=== PATIENT | male | born 1955 | race Caucasian/White ===

== ENCOUNTER 2024-06-13 20:15 | Emergency (ER) | payer OTHER, MEDICARE, SELFPAY ==
[2024-06-13 20:21] VITALS: PULSE 93; O2SAT 98; BMI 20.9
[2024-06-13 20:33] VITALS: BP 127/77; PULSE 89; RESP 18; TEMP 36.5; O2SAT 95
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
[2024-06-13] MEDS: DIPHTH,PERTUSS(ACELL),TET VAC 0.5 ML VIAL IMi (21:16)
[2024-06-13] MEDS: BACITRACIN OINT 1 GM PACKET TOP (21:17)
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
== END 2024-06-13 23:15 | disposition home or self-care (01) ==
PROVIDERS: Emergency Provider Emergency Medicine; PCP Family Medicine
DX: M51.379 Other intervertebral disc degeneration, lumbosacral region without mention of lumbar back pain or lower extremity pain (principal); R51.9 Headache, unspecified; R42 Dizziness and giddiness; M54.2 Cervicalgia; M25.511 Pain in right shoulder; Z23 Encounter for immunization; V43.62XA Car passenger injured in collision with other type car in traffic accident, initial encounter; Y92.410 Unspecified street and highway as the place of occurrence of the external cause
CPT/HCPCS: 70450; 71250; 72125; 72128; 72131; 74176; 90471; 90715; 99285; A9270

== ENCOUNTER → 2024-06-14 | Outpatient (CLI) | payer OTHER, MEDICARE, SELFPAY ==
--- NOTE | 2024-06-14 14:00 | XR_ITS ---
Examination: CT chest, without intravenous contrast. Sagittal and coronal 2-D reconstructions. Exam date and time: June 14, 2024 1424 hours INDICATIONS: Smoking history years, nicotine dependence, diagnosis lung cancer PET CT scan July 30, 2023 9 mm right upper lobe pulmonary nodule CTDI:vol (mGy) 7.76 DLP: (mGycm) 314 Technique: Multiple 3.0 mm axial sections of the chest to been obtained. Bone and lung density settings are obtained. Sagittal and coronal 2-D reconstructions have been obtained. Low dose protocols were performed. One or more of the following dose reduction techniques were used; automated exposure control, adjustment of the mA and/or KV according to patient size, use of iterative reconstruction technique. Findings: Transverse dimension ascending thoracic aorta 5 cm Pulmonary artery segments are not enlarged No paratracheal tracheobronchial or bronchopulmonary adenopathy COPD with areas of airspace destruction There are 7 subcentimeter bilateral subcentimeter nodules several of which are not clearly depicted on the prior study No pneumonia or pulmonary edema No visualized liver or splenic lesion No gallstones No pancreatic mass No hydronephrosis Partial visualization infrarenal abdominal aortic aneurysm, transverse dimension at least 4.4 cm IMPRESSION: At least 7 subcentimeter pulmonary nodules on the current study, with this study as baseline recommend continued 6 month follow-up CT chest Abdominal aortic and descending thoracic aortic aneurysmal dilatation
== END | disposition home or self-care (01) ==
PROVIDERS: Referring Provider Internal Medicine Hematology & Oncology; Visit Provider Internal Medicine Hematology & Oncology
DX: R91.8 Other nonspecific abnormal finding of lung field (principal); I71.23 Aneurysm of the descending thoracic aorta, without rupture
CPT/HCPCS: 71250

== ENCOUNTER 2024-08-15 11:06 | Outpatient (RCR) | payer OTHER, MEDICARE, SELFPAY ==
--- NOTE | 2024-08-15 12:00 | CTCFLWUP_ITS ---
Patient: YARELY GORMAN : 1955 Page 2 of 2 FOLLOW UP NOTE DATE OF SERVICE: 08/15/2024 NAME: YARELY GORMAN ACCOUNT: [id number] : 1955 AGE: 68 INTERVAL HISTORY: ONCOLOGY HISTORY: DIAGNOSIS: Iron deficiency anemia, unspecified [ICD10] D50.9 Iron deficiency anemia. S/p Feraheme infusion (07/21/2023 - 08/11/2023) Multiple pulmonary nodules Hemor rhagic gastritis. Diverticulosis Mild difficulty swallowing and neck pain. 80-cmni-tgeq smoking history. Patient stopped smoking about 4 years ago. COPD Hypertension Aortic aneurysm being followed by cardiothoracic surgeon in [place]. DATE OF DIAGNOSIS: STAGE/TNM: TREATMENT HISTORY: Care?Plan Start?Date Cycle Day Intent FERAheme?4?doses 07/21/2023 1 28 Palliative HISTORY OF PRESENT ILLNESS: Yarely Gorman is a 68-year-old ENG speaking male with history of hypertension, COPD secondary to cigarette smoking is referred to hematology clinic for anemia. He had EGD and colonoscopy done a bout a year ago by Dr. Dixon. Mr. Gorman complains of having mild difficulty swallowing as well as ne ck pain. 12/05/2021: Hemoglobin 10.7, MCV 84, WBC 6.6, ANC 4.8, platelets 219,000. Creatinine 1.3. 08/20/2022: CT scan of the chest abdomen and pelvis with IV contrast 10/07/2021: Colonoscopy 04/02/2022: EGD? 08/20/2022: Hemoglobin 8.8, MCV 80, WBC 6.5, ANC 4.9, platelets 276,000. Creatinine 1.1. 10/28/2022: Hemoglobin 9.5, MCV 82, WBC 6.9, ANC 5.2, platelets 280,000. 01/29/2023: Hemoglobin 9.8, MCV 87, WBC 6.2, ANC 4.7, platelets 279,000. 05/29/2023: Hemoglobin 9.1, MCV 85, WBC 6.9, ANC 5.3, platelets 541,000, creatinine 1.02 folate 9.6, TSH 1.7, B12 768, ferritin 105 07/02/2023: Hemoglobin 9.8, MCV 86, WBC 7.6, ANC 5.9, platelets 330,000, iron saturation 12%, ferriti n 27, B12 523, folic acid 7.2. 07/21/2023?08/11/2019: Patient received a total of 2040 mg of Feraheme. 07/30/2023: PET/CT scan 09/11/2023: Hemoglobin 10.3, MCV 90, WBC 5.6, ANC 4.0, platelets 245,000. 10/23/2023: Hemoglobin 11.5, MCV 90, WBC 6.5, ANC 4.8, platelets 271,000. 11/24/2023: CT scan of the chest without IV contrast 11/25/2023: Hemoglobin 11.6, MCV 93, WBC 6.5, ANC 4.6, platelets 271,000. OTHER MEDICAL HISTORY/CONDITIONS: chf copd anemia high blood pressure mumps coils/ anyrisum x 3 ulcer surgery 1980s hand surgery FAMILY HISTORY: Patient?denies?family?cancer?history. 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 Tobacco?Pack?per?Day:?0 Tobacco?Use?Years:?50 ETOH?Use:?denies Drug?Note:?denies Social?History?Note:?lives?with??? MEDICATIONS: 1. None Medications Last Reconciled by Claudia Santillan MA on 08/15/2024 ALLERGIES: REVIEW OF SYSTEMS: A complete 14-point review of systems was performed and is negative except as noted in interval histo ry. PHYSICAL EXAMINATION: VITAL SIGNS: PAIN: 2 - Mild pain ECOG Performance Status: 0 - Asymptomatic and fully active GENERAL APPEARANCE: Appears well, in no apparent distress, appropriately interactive. HEENT: Normocephalic, no temporal wasting, normal conjunctiva, no scleral icterus, normal hearing, li ps without lesions, neck normal range of motion. CARDIOVASCULAR: Not assessed. PULMONARY: Normal respiratory effort, no respiratory distress or use of accessory muscles, speaking i n full sentences, no tachypnea. EXTREMITIES: No pedal edema or cyanosis. SKIN: Normal skin appearance. NEUROLOGIC: Alert and oriented x4. PSHYCHIATRIC: Appropriate affect, mood normal, behavior normal, intact thought and speech. LABORATORY DATA: I have personally reviewed and interpreted each of the patient?s relevant lab tests, abnormal finding s are below: Date 07/21/23 ??WHITE?BLOOD?COUNT?(Thou/mm3) 6.2 ??RED?BLOOD?COUNT?(Miln/mm3) 3.36?L ??HEMOGLOBIN?(gm/dl) 9.0?L ??HEMATOCRIT?(%) 27.9?L ??PLATELET?COUNT?(Thou/mm3) 376 ??NEUTROPHILS?%,?AUTO?(%) 73 ??LYMPH?%,?AUTO?(%) 13 ??NEUTROPHILS,?AUTO?(Thou/mm3) 4.5 ASSESSMENT/PLAN: 1. Lung nodule the CT scans from 11/24/2023 were reviewed by radiologist at [facility] in [place]. He did not see any 16mm right upper lobe pulmonary nodule. He has recommended repeating the CT scan of the chest in about 3 [address] scan done on May 2024 did not show 60 mm nodule but shanita wed multiple nodules in both lungs and recommendation is to repeat another CT scan in 6 months Patient quit smoking about 5 years ago Patient have baseline COPD but do not require oxygen 2. Iron deficiency anemia anemia s/p 4 doses of Feraheme Reviewed labs and have anemia as well as iron deficiency Will order Feraheme or 4 doses Patient have a diagnosis of hemorrhagic gastritis Patient just had EGD and colonoscopy in [place] and will send me reports . 3. Diverticulosis 4. Mild difficulty swallowing and neck pain-will wait for EGD report. 5. [id number] smoking history. Patient stopped smoking about 4 years ago. 6. COPD 7. Hypertension follows with PCP 8. Aortic aneurysm on blood thinner. Patient says he stopped taking it as there was some confusion r egarding his procedure. He is back on anticoagulation ORDERS: CT chest for September CBC CMP iron studies after the iron infusion RETURN TO CLINIC: In 2 months with reports from [place] and CT scan results Patient will make earlier appointment if found to have anything concerning on the report of EGD and c olonoscopy by his community pharmacist BILLING AND COMPLIANCE: I reviewed external records from providers outside my specialty as summarized above. I spent a total of 50 minutes on this patient?s care on the day of their visit excluding time spent related to any bi lled procedures. This time includes time spent with the patient as well as time spent documenting in the medical record, reviewing patients records and tests, obtaining history, placing orders, communi cating with other healthcare professionals, counseling the patient, family or caregiver, and/or care coordination for the diagnoses above. Electronically Signed by: George Gonzalez MD T: 11:57 AM CC: PCP: Ekaterina Knott Referring: Ekaterina Knott This document was completed utilizing speech recognition software. Grammatical errors, random word in sertions, pronoun errors, and incomplete sentences are an occasional consequence of this system due t o software limitations, ambient noise, and hardware issues. Any formal questions or concerns about th e content, text or information contained within the body of this dictation should be directly address ed to the provider for clarification.
== END 2024-08-19 23:59 | disposition home or self-care (01) ==
LOC: SCTC 11:06
PROVIDERS: PCP Family Medicine; Referring Provider Family Medicine; Visit Provider Internal Medicine Hematology & Oncology
DX: D50.9 Iron deficiency anemia, unspecified (principal); R91.1 Solitary pulmonary nodule; K57.90 Diverticulosis of intestine, part unspecified, without perforation or abscess without bleeding; R13.10 Dysphagia, unspecified; M54.2 Cervicalgia; J44.9 Chronic obstructive pulmonary disease, unspecified; I10 Essential (primary) hypertension; Z87.891 Personal history of nicotine dependence
CPT/HCPCS: 99212; G0463

== ENCOUNTER 2024-09-08 08:47 | Emergency (ER) | payer OTHER, MEDICARE, SELFPAY ==
[2024-09-08 08:48] VITALS: BMI 21.7
[2024-09-08 09:10] VITALS: BP 130/79; PULSE 83; RESP 18; TEMP 36.9; O2SAT 99
--- NOTE | 2024-09-08 09:29 | PD.EDADULT ---
ED General RME/HPI General Chief complaint: General Adult/Misc Complain Stated complaint: EYE PROBLEMS Time Seen by Provider: 09/08/24 09:27 Source: patient Arrival date/time: 09/08/24 08:47 This is a 68-year-old male who presents to the emergency department with complaints of bloodshot right eye that began this morning. Patient reports he was on his way to [facility] where he would follow-up with his physician for recent stent in the common bile duct. However he noticed painless bloodshot right eye and was instructed to go to the nearest emergency department. Patient denies any injury, or pain. No visual disturbances Mode of arrival: ambulatory Limitations: no limitations Related Data Home Medications ?Medication ?Instructions ?Recorded ?Confirmed spironolactone 25 mg tablet 25 mg PO QDAY 03/29/19 08/20/22 clopidogrel 75 mg tablet 75 mg PO DAILY 12/05/21 08/20/22 pramipexole 0.25 mg tablet 0.25 mg PO HS 12/05/21 08/20/22 carvedilol 12.5 mg tablet 12.5 mg PO BID 08/20/22 08/20/22 ezetimibe 10 mg tablet 10 mg PO QDAY 08/20/22 08/20/22 fluticasone propionate 220 2 puff inhalation BID 08/20/22 08/20/22 mcg/actuation HFA aerosol inhaler (Flovent HFA) lisinopril 40 mg tablet 40 mg PO QDAY 08/20/22 08/20/22 meloxicam 15 mg tablet 15 mg PO QDAY 08/20/22 08/20/22 tiotropium bromide 2.5 1 inh inhalation BID 08/20/22 08/20/22 mcg/actuation mist for inhalation (Spiriva Respimat) Allergies Allergy/AdvReac Type Severity Reaction Status Date / Time No Known Allergies Allergy Verified 09/08/24 08:51 Review of Systems Review of Systems Systems Reviewed: All systems reviewed, normal except as documented Narrative Review of Systems: Gen: No fever, no chills, no weight loss EYES: No discharge, no visual changes, no pain HEENT: No ear pain, no congestion, no sore throat PULM: No shortness of breath, no cough, no congestion CV: No chest pain, no dyspnea on exertion, no palpitations GI: No nausea, no vomiting, no diarrhea, no pain, no constipation : No frequency, no urgency,? no dysuria Musc/skel: No joint pain, no back pain Skin: No rash? Psyc: No hallucinations, no depression Heme/Lymph: No easy bleeding or bruising tendencies Neuro: No weakness, no headache ED Exam General Limitations: Present no limitations General appearance: Present alert and in no apparent distress Head Head exam: Present atraumatic Eye Eye exam: Present PERRL and EOMI Expanded Eye Exam Pupils: Bilateral: regular, round and reactive Sclera/Conjunctival: right: hemorrhage ENT ENT exam: Present normal exam, normal oropharynx and mucous membranes moist Neck Neck exam: Present normal inspection, full ROM and trachea midline Chest Chest inspection: Present normal inspection and symmetric chest wall rise Respiratory Respiratory exam: Present normal lung sounds bilaterally Cardiovascular Cardiovascular exam: Present regular rate, normal rhythm and normal heart sounds Abdominal Exam Abdominal exam: Present soft and normal bowel sounds Extremities Exam Extremities exam: Present normal inspection and full ROM Back Exam Back exam: Present normal inspection and full ROM Neurological Exam Neurological exam: Present alert, oriented X3 and CN II-XII intact Psychiatric Psychiatric exam: Present normal affect and normal mood Skin Skin exam: Present warm, dry, intact and normal color Course Quality Measures none Vital Signs Vital signs: Vital Signs Temperature 98.4 F 09/08/24 09:10 Pulse Rate 83 09/08/24 09:10 Respiratory Rate 18 09/08/24 09:10 Blood Pressure 130/79 09/08/24 09:10 Pulse Oximetry (%) 99 09/08/24 09:10 Oxygen Delivery Method Room Air 09/08/24 09:10 MDM Patient data External records reviewed:: [facility] previous records Clinical information provided by:: patient Social determinants that could affect healthcare access:: none Patient has the following chronic illnesses:: see How is presenting disease/condition affected by chronic disease/condition?: no chronic disease Evaluation data The following diagnostics were reviewed and interpreted by me:: other (specify) Lab and/or radiology exams considered but not ordered:: no Interpretation Summary: no Medications Medications considered but not ordered:: none Medication administrations:: None Consultations Consultation(s) initiated? (list below): No Diagnosis Differential Diagnosis ED Complaint MDM: Subconjunctival hemorrhage, bacterial conjunctivitis, viral conjunctivitis Most likely diagnosis given after review of the tests above:: Subconjunctival hemorrhage Admission Indicated Admission indicated?: not indicated Explain why admission is indicated or not indicated:: no Admission Request Was there a request for admission?: No Disposition Plan Disposition Plan: Discharge Discharge Attestation Discharge Attestation: The patient and all family members were given an opportunity to ask questions and understood the discharge instructions. Discharge instructions specifically effects, indications for sooner follow up or return to the emergency department, and the expected course of current diagnosis. Patient condition: Stable Medical Decision Making MDM Narrative MDM Narrative: Presentation consistent with subconjunctival hemmorhage. Given history and exam I have low suspicion for corneal abrasion or ulcer, globe rupture, uveitis, HSV keratitis, Endopthalmitis, Retinal Detachment, Angle Closure Glaucoma, Foreign Body, hyphema. As this is an isolated episode and patient has no other bleeding sequelae they are stable for discharge without further workup. Discharge home with primary care and ophthalmology follow up in 48 hours if worsening or not resolving. Differential Diagnosis Differential Diagnosis: Subconjunctival hemorrhage, bacterial conjunctivitis, viral conjunctivitis Discharge Plan Plan Patient Disposition: HOME (Self Care) Patient condition on transfer: Stable Prescriptions/Referrals Prescriptions/Med Rec: No Action spironolactone 25 mg Tablet 25 mg PO QDAY clopidogrel 75 mg tablet 75 mg PO DAILY Patient Comments: TAKE 1 TABLET BY MOUTH EVERY DAY FOR 30 DAYS pramipexole 0.25 mg tablet 0.25 mg PO HS Patient Comments: TAKE ONE TABLET BY MOUTH AT BEDTIME FOR 30 DAYS carvedilol 12.5 mg Tablet 12.5 mg PO BID Rx Instructions: must administer with a meal/food meloxicam 15 mg Tablet 15 mg PO QDAY fluticasone propionate [Flovent HFA] 220 mcg/actuation Hfa Aerosol Inhaler 2 puff INHALATION BID lisinopril 40 mg Tablet 40 mg PO QDAY ezetimibe 10 mg Tablet 10 mg PO QDAY Spiriva Respimat 2.5 mcg/actuation Mist 1 inh INHALATION BID Problem List Clinical Impression: TOMAS (subconjunctival hemorrhage) Patient/Caregiver Discharge Instructions Discharge Activity: activity as tolerated Education Materials: ED Subconjunctival Hemorrhage Additional Instructions: Appears that you have a subconjunctival conjunctival hemorrhage no specific treatment is required; the hemorrhage will resolve on its own within 1-2 weeks. Artificial tears may be used for comfort if there is mild irritation. Avoid rubbing the eye to prevent further irritation. Monitor for worsening symptoms, such as pain, vision loss, or recurrent bleeding, and return if these occur. If the patient has a history of hypertension or bleeding disorders, follow up with their primary care provider for further evaluation. Print Language: Irish Stand Alone Forms: Anita Award Info., Patient Portal Info Letter PA/YVONNE Supervising Physician CASSIE/YVONNE Supervising Physician: Dr Marquez
== END 2024-09-08 09:41 | disposition home or self-care (01) ==
PROVIDERS: Emergency Provider Emergency Medicine
DX: H11.31 Conjunctival hemorrhage, right eye (principal)
CPT/HCPCS: 99281

== ENCOUNTER → 2024-09-22 | Outpatient (CLI) | payer OTHER, MEDICARE, SELFPAY ==
--- NOTE | 2024-09-22 13:52 | XR_ITS ---
Examination: PA lateral chest 2 views Technique: AP lateral chest 2 views Exam date and time: September 22, 2024 1406 hrs. Comparison November 19, 2023 Indications: Difficulty breathing 10 years, shortness of breath Findings: Significant hyperexpansion Normal heart size No lobar pneumonia or pulmonary edema Impression: COPD, significant hyperexpansion
== END | disposition home or self-care (01) ==
PROVIDERS: PCP Internal Medicine; Referring Provider Internal Medicine; Visit Provider Internal Medicine
DX: J44.9 Chronic obstructive pulmonary disease, unspecified (principal); J06.9 Acute upper respiratory infection, unspecified; I71.20 Thoracic aortic aneurysm, without rupture, unspecified; R93.2 Abnormal findings on diagnostic imaging of liver and biliary tract
CPT/HCPCS: 71046

== ENCOUNTER → 2024-10-03 | Outpatient (CLI) | payer OTHER, MEDICARE, SELFPAY ==
--- NOTE | 2024-10-03 14:00 | XR_ITS ---
Examination: CT chest with intravenous contrast 2-D sagittal and coronal reconstructions Exam date and time: 08/05/2024 at 1404 hours Comparison June 14, 2024 INDICATIONS: Diagnosis anemia iron deficiency unspecified several weeks, smoking history nicotine dependence, PET/CT scan July 30, 2023 9 mm pulmonary nodule right upper lobe, CT chest July 14, 2024 at least 7 subcentimeter pulmonary nodules CTDI:vol (mGy) 9.31 DLP: (mGycm) 347 Technique: Multiple axial sections of the thorax have been obtained. Sections have been obtained, 3 mm slice thickness. Mediastinal and lung density settings have been obtained. Intravenous contrast administered, 60 cc Isovue-370. 2-D sagittal, coronal images obtained. Low dose protocols were performed. One or more of the following dose reduction techniques were used; automated exposure control, adjustment of the mA and/or KV according to patient size, use of iterative reconstruction technique. Findings: Transverse dimension ascending thoracic aorta 5 cm No pulmonary artery filling defects Significant calcification left main left anterior descending left circumflex right coronary arteries No interval paratracheal tracheobronchial or bronchopulmonary adenopathy COPD with multiple areas of airspace destruction No change in bilateral subcentimeter pulmonary nodules No new pulmonary nodules Pneumobilia Gallbladder wall appears thickened Biliary stent partly visualized Pancreatic calcifications Bilateral subcentimeter renal calculi IMPRESSION: Stable bilateral subcentimeter pulmonary nodules No new pulmonary nodules Recommend hepatobiliary sonography to assess gallbladder wall Bilateral nonobstructing renal calculi
== END | disposition home or self-care (01) ==
PROVIDERS: Referring Provider Internal Medicine Hematology & Oncology; Visit Provider Internal Medicine Hematology & Oncology
DX: R91.8 Other nonspecific abnormal finding of lung field (principal); N20.0 Calculus of kidney
CPT/HCPCS: 71260; A4649; Q9967

== ENCOUNTER 2024-10-24 13:42 | Outpatient (RCR) | payer OTHER, MEDICARE, SELFPAY ==
--- NOTE | 2024-10-25 10:22 | CTCFLWUP_ITS ---
Patient: YARELY GORMAN : 1955 Page 4 of 6 FOLLOW UP NOTE DATE OF SERVICE: 10/24/2024 NAME: YARELY GORMAN ACCOUNT: [id number] : 1955 AGE: 69 INTERVAL HISTORY: Patient doing well and have no new complaints . Patient have active life. Patient says he did not receive iron even though it was ordered. ONCOLOGY HISTORY:?[facility] Hx? DIAGNOSIS: Iron deficiency anemia, unspecified [ICD10] D50.9 Iron deficiency anemia. S/p Feraheme infusion (07/21/2023 - 08/11/2023) Multiple pulmonary nodules Hemorrhagic gastritis. Diverticulosis Mild difficulty swallowing and neck pain. 95-jidx-ungs smoking history. Patient stopped smoking about 4 years ago. COPD Hypertension Aortic aneurysm being followed by cardiothoracic surgeon in [place]. DATE OF DIAGNOSIS: 12/05/2021 STAGE/TNM: Not applicable TREATMENT HISTORY: Care?Plan Start?Date Cycle Day Intent FERAheme?4?doses 07/21/2023 1 28 Palliative HISTORY OF PRESENT ILLNESS: Yarely Gorman is a 69-year-old ENG speaking male with history of hypertension, COPD secondary to cigarette smoking is referred to hematology clinic for anemia. He had EGD and colonoscopy done about a year ago by Dr. Dixon. Mr. Gorman complains of having mild difficulty swallowing as well as neck pain. 12/05/2021: Hemoglobin 10.7, MCV 84, WBC 6.6, ANC 4.8, platelets 219,000. Creatinine 1.3. 08/20/2022: CT scan of the chest abdomen and pelvis with IV contrast 10/07/2021: Colonoscopy 04/02/2022: EGD? 08/20/2022: Hemoglobin 8.8, MCV 80, WBC 6.5, ANC 4.9, platelets 276,000. Creatinine 1.1. 10/28/2022: Hemoglobin 9.5, MCV 82, WBC 6.9, ANC 5.2, platelets 280,000. 01/29/2023: Hemoglobin 9.8, MCV 87, WBC 6.2, ANC 4.7, platelets 279,000. 05/29/2023: Hemoglobin 9.1, MCV 85, WBC 6.9, ANC 5.3, platelets 541,000, creatinine 1.02 folate 9.6, TSH 1.7, B12 768, ferritin 105 07/02/2023: Hemoglobin 9.8, MCV 86, WBC 7.6, ANC 5.9, platelets 330,000, iron saturation 12%, ferritin 27, B12 523, folic acid 7.2. 07/21/2023?08/11/2019: Patient received a total of 2040 mg of Feraheme. 07/30/2023: PET/CT scan 09/11/2023: Hemoglobin 10.3, MCV 90, WBC 5.6, ANC 4.0, platelets 245,000. 10/23/2023: Hemoglobin 11.5, MCV 90, WBC 6.5, ANC 4.8, platelets 271,000. 11/24/2023: CT scan of the chest without IV contrast 11/25/2023: Hemoglobin 11.6, MCV 93, WBC 6.5, ANC 4.6, platelets 271,000. OTHER MEDICAL HISTORY/CONDITIONS: chf copd anemia high blood pressure mumps coils/ anyrisum x 3 ulcer surgery 1980s hand surgery FAMILY HISTORY: Patient?denies?family?cancer?history. 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 Tobacco?Pack?per?Day:?0 Tobacco?Use?Years:?50 ETOH?Use:?denies Drug?Note:?denies Social?History?Note:?lives?with??? MEDICATIONS: 1. None?[place] Meds? Medications Last Reconciled by Claudia Santillan MA on 10/24/2024 ALLERGIES: REVIEW OF SYSTEMS: A complete 14-point review of systems was performed and is negative except as noted in interval history. PHYSICAL EXAMINATION:?CloneBlock PE? VITAL SIGNS: Temperature?98.2, B/P?114/70, Oxygen?Saturation?95% Weight?137.4?lbs PAIN: 0 - No pain ECOG Performance Status: 0 - Asymptomatic and fully active GENERAL APPEARANCE: Appears well, in no apparent distress, appropriately interactive. HEENT: Normocephalic, no temporal wasting, normal conjunctiva, no scleral icterus, normal hearing, lips without lesions, neck normal range of motion. CARDIOVASCULAR: Not assessed. PULMONARY: Normal respiratory effort, no respiratory distress or use of accessory muscles, speaking in full sentences, no tachypnea. EXTREMITIES: No pedal edema or cyanosis. SKIN: Normal skin appearance. NEUROLOGIC: Alert and oriented x4. PSHYCHIATRIC: Appropriate affect, mood normal, behavior normal, intact thought and speech. LABORATORY DATA: I have personally reviewed and interpreted each of the patient?s relevant lab tests, abnormal findings are below: Date 07/21/23 ??WHITE?BLOOD?COUNT?(Thou/mm3) 6.2 ??RED?BLOOD?COUNT?(Miln/mm3) 3.36?L ??HEMOGLOBIN?(gm/dl) 9.0?L ??HEMATOCRIT?(%) 27.9?L ??PLATELET?COUNT?(Thou/mm3) 376 ??NEUTROPHILS?%,?AUTO?(%) 73 ??LYMPH?%,?AUTO?(%) 13 ??NEUTROPHILS,?AUTO?(Thou/mm3) 4.5 ??GLUCOSE,RANDOM?(mg/dL) 88 ??BLOOD?UREA?NITROGEN?(mg/dL) 27?H ??CREATININE?(mg/dL) 1.20 ??SODIUM?(mmol/L) 136 ??POTASSIUM?(mmol/L) 4.1 ??CHLORIDE?(mmol/L) 107 ??CrCl?(CandG)?(ml/min) 50.02 ??AST/SGOT?(Unit/L) <?8 ??ALT/SGPT?(Unit/L) 13 ??ALKALINE?PHOSPHATASE?(Unit/L) 88 ??BILIRUBIN,?TOTAL?(mg/dL) 0.2?L ??PROTEIN?TOTAL?(gm/dl) 6.5 ??ALBUMIN,?SERUM?(gm/dl) 4.1 ??GLOBULIN?(gm/dl) 2.4 ??ALBUMIN/GLOBULIN?RATIO 1.7 ??CALCIUM,?SERUM?(mg/dL) 9.1 ??CALCIUM?SERUM?(CORRECTED)?(mg/dL) 9.1 ??TOTAL?IRON?BINDING?CAP?(S*)?(mcg/dL) 329 ??UNBOUND?IBC?(mcg/dL) 305?H ASSESSMENT/PLAN:?Jayjay Gonzalez Assessment/Plan? 1. Lung nodule the CT scans from 11/24/2023 were reviewed by radiologist at [facility] in [place]. He did not see any 16mm right upper lobe pulmonary nodule. He has recommended repeating the CT scan of the chest in about 3 [address] scan done on May 2024 did not show 60 mm nodule but showed multiple nodules in both lungs and recommendation is to repeat another CT scan in 6 months Patient quit smoking about 5 years ago Patient have baseline COPD but do not require oxygen CT scan on 10/03/2024 shows stable bilateral subcentimeter Colten nodules and no new pulmonary nodules 2. Iron deficiency anemia anemia s/p 4 doses of Feraheme Reviewed labs and have anemia as well as iron deficiency Will order Feraheme or 4 doses Patient have a diagnosis of hemorrhagic gastritis Patient just had EGD and colonoscopy in [place] and will send me reports-report still not available but per patient everything was normal Recent iron studies are stable Will check for other causes of anemia . 3. Diverticulosis 4. Mild difficulty swallowing and neck pain-will wait for EGD report. 5. 26-yset-yoxe smoking history. Patient stopped smoking about 4 years ago. 6. COPD 7. Hypertension follows with PCP 8. Aortic aneurysm on blood thinner. Patient says he stopped taking it as there was some confusion regarding his procedure. He is back on anticoagulation ORDERS: Order # Description [id number] Ferritin + Vitamin B-12 + Folic Acid; Serum + Iron Panel + Lactate Dehydrogenase (LDH) + Assay Of Haptoglobin Quant [id number] MD Follow Up 2 Months [id number] CBC with Auto Diff + Comprehensive Metabolic Panel - 12 [id number] Serum Immunofixation Electrophoresis + Serum Protein Electrophoresis + Quant Immunoglobulins + Free kappa and lambda light chains plus ratio, quantitative [id number] Testosterone; Total RETURN TO CLINIC: To go over the labsI will see him back in the clinic in 2 months. BILLING AND COMPLIANCE: I reviewed external records from providers outside my specialty as summarized above. I spent a total of 50 minutes on this patient?s care on the day of their visit excluding time spent related to any billed procedures. This time includes time spent with the patient as well as time spent documenting in the medical record, reviewing patients records and tests, obtaining history, placing orders, communicating with other healthcare professionals, counseling the patient, family or caregiver, and/or care coordination for the diagnoses above. Electronically Signed by: George Gonzalez MD T: 10:20 AM CC: Ian?Nadeen?Magali,? PCP: Ian Olmedo Referring: Ian Olmedo This document was completed utilizing speech recognition software. Grammatical errors, random word insertions, pronoun errors, and incomplete sentences are an occasional consequence of this system due to software limitations, ambient noise, and hardware issues. Any formal questions or concerns about the content, text or information contained within the body of this dictation should be directly addressed to the provider for clarification.
== END 2024-11-16 23:59 | disposition home or self-care (01) ==
LOC: SCTC 13:42
PROVIDERS: PCP Internal Medicine; Referring Provider Internal Medicine; Visit Provider Internal Medicine Hematology & Oncology
DX: D50.9 Iron deficiency anemia, unspecified (principal); R91.8 Other nonspecific abnormal finding of lung field; Z87.891 Personal history of nicotine dependence; J44.9 Chronic obstructive pulmonary disease, unspecified; K57.90 Diverticulosis of intestine, part unspecified, without perforation or abscess without bleeding; M54.2 Cervicalgia; R13.10 Dysphagia, unspecified; K29.71 Gastritis, unspecified, with bleeding; I71.9 Aortic aneurysm of unspecified site, without rupture; Z79.01 Long term (current) use of anticoagulants
CPT/HCPCS: 99212; G0463

== ENCOUNTER 2024-10-30 06:20 | Emergency (ER) | payer OTHER, MEDICARE, SELFPAY ==
[2024-10-30 06:25] VITALS: BP 145/81; PULSE 83; RESP 18; TEMP 36.4; O2SAT 95
[2024-10-30 06:26] VITALS: BMI 21.7
[2024-10-30 06:27] VITALS: PULSE 91; RESP 20; O2SAT 96
--- NOTE | 2024-10-30 06:45 | EKG_ITS ---
[facility] Test Date: 2024-10-30 Pat Name: YARELY GORMAN Department: Room: - Gender: Male [employer]ist: : 1955 Requested By: Letha Granados Order Number: [id number] Reading MD: Letha Granados Measurements Intervals [place] Rate: 79 P: 59 DC: 159 QRS: 27 QRSD: 100 T: 60 QT: 372 QTc: 428 Interpretive Statements SINUS RHYTHM WITH OCCASIONAL VENTRICULAR PREMATURE COMPLEXES SEPTAL MYOCARDIAL INFARCTION , OF INDETERMINATE AGE [40+ ms Q WAVE IN V1/V2] Compared to ECG 11/19/2023 21:01:52 Ventricular premature complex(es) now present Myocardial infarct finding now present /store/S0/[id number].pdf
[2024-10-30] MEDS: SODIUM CHLORIDE 0.9% 1000 ML 1,000 ML 999 ML IV (06:53)
--- NOTE | 2024-10-30 06:54 | EDNOTE_ITS ---
Nausea/Vomit./Diarrhea-RME/HPI General Chief complaint: Nausea/Vomiting/Diarrhea Stated complaint: NAUSEA Time Seen by Provider: 10/30/24 06:38 Arrival date/time: 10/30/24 06:20 RME / HPI RME / HPI Narrative: DR. PAULSON MAIN ED EVALUATION: 69 year old male presents to the Emergency Department [facility] with complaints of nausea, dry heaving, not really vomiting, and light-headedness. Onset of symptoms 530 AM today. Per patient he is unsure if it had to do with his gallbladder stent problem or change in diet; he states his wanted him to eat better and got some mediterranean meat that might of been bad. Denies any di arrhea or constipation. Denies any urinary symptoms. No chest pain. PMHx: CHF, COPD secondary to cigarette smoking quit 5 years ago, multiple pulmonary nodules, iron deficiency anemia, gastritis, hypertension, and an aortic aneurysm being followed by cardiothoracic surgeon in [place]. Social Hx: No tobacco, alcohol, or substance use. Related Data Home Medications ?Medication ?Instructions ?Recorded ?Confirmed spironolactone 25 mg tablet 25 mg PO QDAY 03/29/1908/11 clopidogrel 75 mg tablet 75 mg PO DAILY 12/05/2108/11 pramipexole 0.25 mg tablet 0.25 mg PO HS 12/05/2108/11 carvedilol 12.5 mg tablet 12.5 mg PO BID 08/20/2208/11 ezetimibe 10 mg tablet 10 mg PO QDAY 08/20/2208/20 fluticasone propionate 220 2 puff inhalation BID 08/2008/20/22 mcg/actuation HFA aerosol inhaler (Flovent HFA) lisinopril 40 mg tablet 40 mg PO QDAY 08/20/2208/20 meloxicam 15 mg tablet 15 mg PO QDAY 08/20/2208/20 tiotropium bromide 2.5 1 inh inhalation BID 3 08/20/22 mcg/actuation mist for inhalation (Spiriva Respimat) Allergies Allergy/AdvReac Type Severity Reaction Status Date / Time No Known Allergies Allergy Verified 09/08/24 08:51 Review of Systems Review of Systems Systems Reviewed: All systems reviewed, normal except as documented Past Medical History Past Medical History NEUROLOGIC: Positive Neurological Disorders CARDIAC: Positive Cardiac Disorders, Deep Vein Thrombosis and Hypertension RESPIRATORY: Positive Pneumonia GASTROINTESTINAL: Positive Gastrointestinal Disorders MUSCULOSKELETAL: Positive Musculoskeletal Disorders, Arthritis and Fractures (WRIST) HEMATOLOGIC: Positive Blood Disorders and Anemia (ON TREATMENTS) OTHER HISTORY: Positive Hospitalization, Chicken Pox, Measles and Mumps Family History FAMILY HISTORY: Positive Family Respiratory Disorders Surgical History SURGICAL: Positive Vascular Surgery, Angiogram, Tonsillectomy, Abdominal Surgery and Amputation Social History SMOKING STATUS: Never smoker SECOND HAND EXPOSURE: Yes SUBSTANCE USE: does not use ALCOHOL: Never ED Exam Narrative Physical exam: GENERAL APPEARANCE: alert and oriented x 4, well-developed, well-nourished, no acute distress VITALS: All vitals were reviewed and the pulse ox is 95% on room air, which is normal according to my interpretation. HEENT: Normocephalic, atraumatic; pupils equal, round, reactive to light; EOMI; mucous membranes pink, moist; oropharynx clear NECK: Supple LUNGS: CTABL; no wheezes, no rales, no rhonchi HEART: Regular rate, regular rhythm; normal S1, S2; no murmurs ABDOMEN: mildly distended; normal BS; soft, no tenderness, no guarding, no rebound; no masses, no organomegaly, no hernia BACK: no CVA tenderness EXTREMITIES: atraumatic; no edema NEUROLOGIC: awake; alert and oriented x4; cranial nerves II-XII grossly intact; no focal sensory or motor deficits PSYCHIATRIC: appropriate mood and affect SKIN: warm, dry, normal color; no rashes Course Quality Measures none Orders Category Date Time Status CT Screening NOW Care 10/30/24 08:50 Completed Security Incident Response Specialist NOW Care 10/30/24 06:45 Completed EKG (ED ONLY) *Do not use* NOW Care 10/30/24 06:[address] angio chest abdomen pelvis Stat Exams 10/30/24 08:[address] head/brain wo con Stat Exams 10/30/24 08:50 Completed EKG (ED Only) Stat Exams 10/30/24 06:45 Draft B-Type Natriuretic Peptide Stat Lab 10/30/24 07:44 Completed CBC Stat Lab 10/30/24 07:44 Completed Comprehensive Metabolic Panel Stat Lab 10/30/24 07:44 Completed Lipase Stat Lab 10/30/24 07:44 Completed Magnesium Stat Lab 10/30/24 07:44 Completed Partial Thromboplastin Time Stat Lab 10/30/24 07:44 Completed Prothrombin Time with INR Stat Lab 10/30/24 07:44 Completed Troponin I Stat Lab 10/30/24 07:44 Completed Ondansetron Inj [Zofran Inj] Med 10/30/24 06:32 Discontinued 4 mg IV X1 ONE Sodium Chloride 0.9% 1000 ml [Ns] 1,000 ml Med 10/30/24 06:45 Discontinued IV 999 mls/hr Vital Signs Vital signs: Vital Signs Temperature 97.5 F 10/30/24 06:25 Pulse Rate 83 10/30/24 06:25 Respiratory Rate 18 10/30/24 06:25 Blood Pressure 145/81 H 10/30/24 06:25 Pulse Oximetry (%) 95 10/30/24 06:25 Oxygen Delivery Method Room Air 10/30/24 06:25 Nausea/Vomiting/Diarrhea MDM Narrative MDM Narrative:: Aarti Lemos am scribing for and in the presence of Dr. Paulson. Patient data External records reviewed:: [facility] previous records (Reviewed oncology note by Dr. Gonzalez, dated 08/15/24.) Clinical information provided by:: patient Social determinants that could affect healthcare access:: other (specify) (Former smoker, quit 5 years ago.) Patient has the following chronic illnesses:: CHF, COPD secondary to cigarette smoking quit 5 years ago, multiple pulmonary nodules, iron deficiency anemia, gastritis, hypertension, and an aortic aneurysm being followed by cardiothoracic surgeon in [place]. How is presenting disease/condition affected by chronic disease/condition?: exacerbated by Evaluation data The following diagnostics were reviewed and interpreted by me:: lab results and EKG tracing(s) Lab and/or radiology exams considered but not ordered:: none Interpretation Summary: EKG#1: EKG at 0705 hours. Interpreted by me: sinus rhythm with occasional PVCs, rate 79, Q wave V1-V3 Medications / Prescriptions Medications / Prescriptions considered but not ordered:: none Medication administrations:: Medication Administration History Discontinued Medications Sodium Chloride (Ns) 1,000 mls @ 999 mls/hr IV .Q1H1M ONE Stop: 10/30/24 07:45 Last Infusion: 10/30/24 07:55 Dose: Infused Documented By: Admin: 10/30/24 06:53 Dose: 999 mls/hr Documented By: AKIRA Ondansetron HCl (Ondansetron Inj 2 Mg/Ml Inj 2 Ml) 4 mg IV X1 ONE; Protocol Stop: 10/30/24 06:33 Last Admin: 10/30/24 10:11 Dose: Not Given Documented By: CIRA Non-Admin Reason: Other, see note Comments: PATIENT WITH NAUSEA, HELD MEDICATION see above Consultations Consultation(s) initiated? (list below): No Diagnosis Nausea Differential Diagnosis: traveler's diarrhea, food poisoning, gastroenteritis and dehydration Most likely diagnosis given after review of the tests above:: Nausea Dizziness Admission Indicated Admission indicated?: not indicated Admission Request Was there a request for admission?: No Disposition Plan Disposition Plan: Discharge Discharge Attestation Discharge Attestation: The patient and all family members were given an opportunity to ask questions and understood the discharge instructions. Discharge instructions specifically effects, indications for sooner follow up or return to the emergency department, and the expected course of current diagnosis. Patient condition: Stable Discharge Plan Plan Patient Disposition: HOME (Self Care) Prescriptions/Referrals Prescriptions/Med Rec: No Action spironolactone 25 mg Tablet 25 mg PO QDAY clopidogrel 75 mg tablet 75 mg PO DAILY Patient Comments: TAKE 1 TABLET BY MOUTH EVERY DAY FOR 30 DAYS pramipexole 0.25 mg tablet 0.25 mg PO HS Patient Comments: TAKE ONE TABLET BY MOUTH AT BEDTIME FOR 30 DAYS carvedilol 12.5 mg Tablet 12.5 mg PO BID Rx Instructions: must administer with a meal/food meloxicam 15 mg Tablet 15 mg PO QDAY fluticasone propionate [Flovent HFA] 220 mcg/actuation Hfa Aerosol Inhaler 2 puff INHALATION BID lisinopril 40 mg Tablet 40 mg PO QDAY ezetimibe 10 mg Tablet 10 mg PO QDAY Spiriva Respimat 2.5 mcg/actuation Mist 1 inh INHALATION BID Referrals: Ian Senior [Primary Care Provider] - In 1 week Problem List Clinical Impression: Nausea, Dizziness Patient/Caregiver Discharge Instructions Education Materials: ED Dizziness, Uncertain Cause Print Language: Hong Konger Stand Alone Forms: Anita Award Info., Patient Portal Info Letter
[2024-10-30 07:29] VITALS: BP 111/76; PULSE 86; RESP 20; O2SAT 96
[2024-10-30 07:59] LABS: Basophils % (Auto) 1 % (0-2.5); Eosinophils # (Auto) 0.3 Thou/mm3 (0.0-0.5); Eosinophils % (Auto) 4 % (0-10); Hematocrit 31.3 % (41.0-53.0); Hemoglobin 10.8 g/dL (13.5-16.0); Immature Granulocytes % (Auto) 0 % (0-0); Immature Granulocytes Auto 0.02 Thou/mm3 (0.00-0.00); Lymphocytes # (Auto) 0.9 Thou/mm3 (1.0-4.8); Lymphocytes % (Auto) 13 % (10-50); Mean Corpuscular HGB Conc 34.5 g/dl (31.0-37.0); Mean Corpuscular Hemoglobin 30.3 pg (25.0-35.0); Mean Corpuscular Volume 88 fL (80-100); Monocytes # (Auto) 0.5 Thou/mm3 (0.0-0.8); Monocytes % (Auto) 8 % (0-12); Neutrophils # (Auto) 5.2 Thou/mm3 (1.8-7.7); Neutrophils % (Auto) 75 % (37-80); Nucleated Red Blood Cell % 0 /100 WBC (0); Platelet Count 235 Thou/mm3 (140-440); Red Blood Count 3.57 Miln/mm3 (4.50-5.90); White Blood Count 6.9 Thou/mm3 (3.8-10.6)
--- NOTE | 2024-10-30 08:34 | PC.NURSE ---
PATIENT DENIES COMPLAINT OF NAUSEA AT THIS TIME. WILL CONTINUE TO MONITOR PATIENT
[2024-10-30 08:36] LABS: B-Type Natriuretic Peptide 131 pg/mL (0-100)
[2024-10-30 08:37] LABS: Partial Thromboplastin Time 29.2 Seconds (22.0-36.0); Prothrombin Time 11.2 Seconds (9.0-12.2)
[2024-10-30 08:38] LABS: Alanine Aminotransferase 15 U/L (10-49); Albumin, Serum 3.6 gm/dL (3.4-4.8); Albumin/Globulin Ratio 1.6 (1.2-2.2); Alkaline Phosphatase 103 U/L (46-116); Anion Gap 4 (7-16); Aspartate Amino Transferase 16 U/L (0-34); BUN/Creatinine Ratio 19 Ratio (12-20); Bilirubin,Total 0.4 mg/dL (0.3-1.2); Blood Urea Nitrogen 21 mg/dL (9-23); Calcium 8.3 mg/dL (8.3-10.6); Calcium (Corrected) 8.6 mg/dL (8.5-10.1); Carbon Dioxide 27.4 mMol/L (20.0-31.0); Chloride 102 mMol/L (98-107); Creatinine (Component) 1.1 mg/dL (0.6-1.3); Estimated Creatinine Clearance 53.3 mL/min (>60); Globulin 2.2 gm/dL (2.3-3.5); Glucose 92 mg/dL (74-106); Lipase 38 U/L (12-53); Magnesium 1.7 mg/dL (1.6-2.6); Osmolality,Calculated 269 (275-295); Potassium 4.8 mMol/L (3.4-5.1); Sodium 133 mMol/L (136-145); Total Protein 5.8 gm/dL (5.7-8.2); Troponin I < 0.020 ng/mL (0.0-0.045); eGFR > 60 See Note
--- NOTE | 2024-10-30 08:50 | XR_ITS ---
Examination: CTA chest, with intravenous contrast. CTA abdomen, with intravenous contrast. CTA pelvis, with intravenous contrast. 2-D sagittal and coronal reconstructions. 3-D reconstructions. Date and time of exam: 09/01/2024 0905 hrs. Comparison October 03, 2024 Indications: Vomiting chest abdominal pain this morning, history recurrent abdominal aortic aneurysm 2 years ago CTDI vol (mgy) 9.29 DLP (MGycm) : 61 Technique: Multiple CTA images, 2.0 mm slice thickness, obtained chest, abdomen, pelvis, with the high-resolution 64 slice scanner. 100 cc Isovue-370 is administered intravenously. Sagittal and coronal 2-D reconstructions are obtained. 3-D reconstructions, angiographic images are obtained. 3-D postprocessing, including vascular maximum intensity projections. Low dose protocols were performed. One or more of the following dose reduction techniques were used; automated exposure control, adjustment of the mA and/or KV according to patient size, use of iterative reconstruction technique. Findings: Transverse dimension ascending thoracic aorta 4.7 cm Pulmonary artery opacification is poor no gross pulmonary artery filling defects No mediastinal lymphadenopathy No pneumonia or pulmonary edema or pleural disease Significant coronary artery calcification Fatty infiltration throughout the liver No intrahepatic biliary tract dilatation Contracted gallbladder Biliary stent satisfactory position Spleen not enlarged. No pancreatic mass. No hydronephrosis. Infrarenal abdominal aortic aneurysm transverse dimension 4.7 cm AP dimension 3.7 cm with prominent chronic mural thrombus Normal appendix Numerous surgical clips and opaque material in the right pelvis No bowel obstruction Urinary bladder intact No significant prostatomegaly Severe osteopenia Impression: Transverse dimension ascending thoracic aorta 4.7 cm no thoracic aortic dissection Pulmonary artery opacification is poor. No pneumonia, pulmonary edema or pleural disease. Biliary stent satisfactory position. Infrarenal abdominal aortic aneurysm transverse dimension 4.7 cm AP dimension 3.7 cm with chronic mural thrombus Normal appendix No bowel obstruction
--- NOTE | 2024-10-30 08:50 | XR_ITS ---
Examination: CT brain head without contrast. 2-D sagittal coronal reconstructions Date and time of exam:October 30, 2024 0903 hrs. Indications: Onset dizziness beginning this morning CTDI: vol (mGy):51.8 DLP: (mGycm):1096 Technique: Multiple CT axial sections of the brain have been obtained, 5 mm slice thickness. Contrast has not been administered. 2-D sagittal, coronal reconstructions have been obtained Low dose protocols were performed. One or more of the following dose reduction techniques were used; automated exposure control, adjustment of the mA and/or KV according to patient size, use of iterative reconstruction technique. Findings: No significant ventricular enlargement. Intra-axial or extra-axial hemorrhage density is not seen. No mass effect or midline shift Basal cisterns are not remarkable. Fourth ventricle is midline. Cranial vault intact. Mild chronic ethmoid sinusitis Impression: Negative for acute hemorrhage, mass effect or midline shift Advise clinical correlation and follow-up accordingly
[2024-10-30 10:00] VITALS: BP 124/67; PULSE 91; RESP 15; TEMP 37.1; O2SAT 96
[2024-10-30 10:37] VITALS: BP 138/84; PULSE 89; RESP 12; TEMP 37.1; O2SAT 97
== END 2024-10-30 10:54 | disposition home or self-care (01) ==
PROVIDERS: Emergency Provider Emergency Medicine; PCP Internal Medicine
DX: R11.2 Nausea with vomiting, unspecified (principal); R42 Dizziness and giddiness; J44.9 Chronic obstructive pulmonary disease, unspecified; I11.0 Hypertensive heart disease with heart failure; I50.9 Heart failure, unspecified; D50.9 Iron deficiency anemia, unspecified; Z87.19 Personal history of other diseases of the digestive system; Z86.718 Personal history of other venous thrombosis and embolism; Z86.79 Personal history of other diseases of the circulatory system; Z87.891 Personal history of nicotine dependence
CPT/HCPCS: 36415; 70450; 71275; 74174; 80053; 83690; 83735; 83880; 84484; 85025; 85610; 85730; 93005; 96360; 99285; A4649; J7030; Q9967

== ENCOUNTER 2024-11-14 23:28 | Emergency (ER) | payer OTHER, MEDICARE, SELFPAY ==
[2024-11-14 23:37] VITALS: PULSE 97; O2SAT 98
[2024-11-14 23:40] VITALS: BMI 22.4
[2024-11-14 23:47] VITALS: BP 107/70; PULSE 97; RESP 20; TEMP 37; O2SAT 96
--- NOTE | 2024-11-14 23:55 | XR_ITS ---
Examination: Knee, right , 3 views Technique: Knee AP, lateral, oblique 3 views Date and time of exam: November 14, 2024 11:59 PM Indications: Knee pain months FINDINGS: Prominent osteopenia Mild to moderate tricompartment osteoarthritis. No fracture IMPRESSION: Mild to moderate tricompartment osteoarthritis
--- NOTE | 2024-11-14 23:56 | EDNOTE_ITS ---
Lower Extremity Injury RME/HPI General Chief Complaint: Extremity Injury, Lower Stated Complaint: R KNEE AND INTERNAL THIGH PAIN Time Seen by Provider: 11/14/24 23:50 Source: patient, EMS, RN notes reviewed and old records reviewed Arrival date/time: 11/14/24 23:28 Mode of arrival: wheelchair Limitations: no limitations RME / HPI RME / HPI Narrative: 69yom presents to ED via EMS for right knee pain for 15 years, worsened today. No recent injury or fall reported. Patient denies joint swelling or numbness/tingling. Tylenol taken at home with little relief. Related Data Home Medications ?Medication ?Instructions ?Recorded ?Confirmed spironolactone 25 mg tablet 25 mg PO QDAY 03/29/1908/11 clopidogrel 75 mg tablet 75 mg PO DAILY 12/05/2108/11 pramipexole 0.25 mg tablet 0.25 mg PO HS 12/05/2108/11 carvedilol 12.5 mg tablet 12.5 mg PO BID 08/20/2208/11 ezetimibe 10 mg tablet 10 mg PO QDAY 08/20/2208/20 fluticasone propionate 220 2 puff inhalation BID 08/2008/20/22 mcg/actuation HFA aerosol inhaler (Flovent HFA) lisinopril 40 mg tablet 40 mg PO QDAY 08/20/2208/20 meloxicam 15 mg tablet 15 mg PO QDAY 08/20/2208/20 tiotropium bromide 2.5 1 inh inhalation BID 3 08/20/22 mcg/actuation mist for inhalation (Spiriva Respimat) Previous Rx's ?Medication ?Instructions ?Recorded acetaminophen 650 mg 650 mg PO Q8H PRN pain #30 t abs 11/15/24 tablet,extended release (Tylenol 8 Hour) lidocaine 5 % topical patch 1 patch topical QDAY PRN p ain #15 11/15/24 ea Allergies Allergy/AdvReac Type Severity Reaction Status Date / Time No Known Allergies Allergy Verified 11/14/24 23:37 Review of Systems Review of Systems Systems Reviewed: All systems reviewed, normal except as documented Musculoskeletal Musculoskeletal: Reports arthralgias, Denies deformity, Denies joint swelling, Denies numbness and Denies tingling Neurologic Neurologic: Denies numbness and Denies tingling Past Medical History Past Medical History NEUROLOGIC: Positive Neurological Disorders CARDIAC: Positive Cardiac Disorders, Deep Vein Thrombosis and Hypertension RESPIRATORY: Positive Pneumonia GASTROINTESTINAL: Positive Gastrointestinal Disorders MUSCULOSKELETAL: Positive Musculoskeletal Disorders, Arthritis and Fractures (WRIST) HEMATOLOGIC: Positive Blood Disorders and Anemia (ON TREATMENTS) OTHER HISTORY: Positive Hospitalization, Chicken Pox, Measles and Mumps Family History FAMILY HISTORY: Positive Family Respiratory Disorders Surgical History SURGICAL: Positive Vascular Surgery, Angiogram, Tonsillectomy, Abdominal Surgery and Amputation Social History SMOKING STATUS: Never smoker SECOND HAND EXPOSURE: Yes SUBSTANCE USE: does not use ALCOHOL: Never ED Exam General Limitations: Present no limitations General appearance: Present alert and in no apparent distress Head Head exam: Present atraumatic and normocephalic Eye Eye exam: Present normal appearance, PERRL and EOMI ENT ENT exam: Present normal exam and mucous membranes moist Neck Neck exam: Present normal inspection and full ROM Chest Chest inspection: Present normal inspection and symmetric chest wall rise Respiratory Respiratory exam: Present normal lung sounds bilaterally; Absent respiratory distress Cardiovascular Cardiovascular exam: Present regular rate and normal rhythm Extremities Exam Extremities exam: Present other (Mild tenderness to right anterior knee, no swe lling. No laxity. FROM. No LE edema. Distal pulses and sensation intact) Neurological Exam Neurological exam: Present alert and oriented X3 Psychiatric Psychiatric exam: Present normal affect and normal mood Skin Skin exam: Present warm, dry, intact and normal color Course Quality Measures none Orders Category Date Time Status ciera wrap [Splint / Immobilizer] STAT Care 11/15/24 00:49 Completed XR knee RT 3V Stat Exams 11/14/24 23:55 Completed Acetaminophen Tab [Tylenol ES Tab] Med 11/14/24 23:55 Discontinued 1,000 mg PO X1 ONE Lidocaine 5% Patch Med 11/14/24 23:55 Discontinued 1 patch TOP X1 ONE Vital Signs Vital signs: Vital Signs Temperature 98.6 F 11/14/24 23:47 Pulse Rate 97 11/14/24 23:47 Respiratory Rate 20 11/14/24 23:47 Blood Pressure 107/70 11/14/24 23:47 Pulse Oximetry (%) 96 11/14/24 23:47 Oxygen Delivery Method Room Air 11/14/24 23:47 Extremity Injury, Lower MDM Narrative MDM Narrative:: 69yom presents to ED via EMS for right knee pain for 15 years, worsened today. No recent injury or fall reported. Patient denies joint swelling or numbness/tingling. Tylenol taken at home with little relief. Patient is neurovascularly intact. Encouraged RICE therapy, motrin/tylenol prn pain. Ortho follow up recommended for further mgmt. Stable for dc, RTED precautions given. Patient data External records reviewed:: [facility] previous records (10/30/24 ED visit for dizziness) Clinical information provided by:: patient and EMS Social determinants that could affect healthcare access:: none Patient has the following chronic illnesses:: arthritis How is presenting disease/condition affected by chronic disease/condition?: exacerbated by Evaluation data The following diagnostics were reviewed and interpreted by me:: radiology exam(s) Lab and/or radiology exams considered but not ordered:: CBC, ESR, CRP: Do not suspect septic joint Interpretation Summary: Knee x-rays: No fracture per my read Medications / Prescriptions Medications or Prescriptions considered but not ordered:: None Medication administrations:: Medication Administration History Discontinued Medications Acetaminophen (Acetaminophen 500 Mg Tablet) 1,000 mg PO X1 ONE Stop: 11/14/24 23:56 Last Admin: 11/15/24 00:11 Dose: Not Given Documented By: ABILIO Non-Admin Reason: Patient Refused Lidocaine (Lidocaine 5% 1 Patch) 1 patch TOP X1 ONE Stop: 11/14/24 23:56 Last Admin: 11/15/24 00:12 Dose: 1 patch Documented By: ABILIO Above medications administered in ED Consultations Consultation(s) initiated? (list below): No Diagnosis Extremity Injury, Lower Differential Diagnosis: other (Fracture, sprain, strain, contusion, MSK pain, DJD, arthritis) Most likely diagnosis given after review of the tests above:: Arthralgia Admission Indicated Admission indicated?: not indicated Admission Request Was there a request for admission?: No Disposition Plan Disposition Plan: Discharge Discharge Attestation Discharge Attestation: The patient and all family members were given an opportunity to ask questions and understood the discharge instructions. Discharge instructions specifically effects, indications for sooner follow up or return to the emergency department, and the expected course of current diagnosis. Patient condition: Stable Discharge Plan Plan Patient Disposition: HOME (Self Care) Patient condition on transfer: Stable Prescriptions/Referrals Prescriptions/Med Rec: New acetaminophen [Tylenol 8 Hour] 650 mg tablet extended release 650 mg PO Q8H PRN (Reason: pain) Qty: 30 0RF lidocaine 5 % adhesive patch,medicated 1 patch topical QDAY PRN (Reason: pain) Qty: 15 0RF Rx Instructions: leave on most painful area for up to 12 hrs No Action spironolactone 25 mg Tablet 25 mg PO QDAY clopidogrel 75 mg tablet 75 mg PO DAILY Patient Comments: TAKE 1 TABLET BY MOUTH EVERY DAY FOR 30 DAYS pramipexole 0.25 mg tablet 0.25 mg PO HS Patient Comments: TAKE ONE TABLET BY MOUTH AT BEDTIME FOR 30 DAYS carvedilol 12.5 mg Tablet 12.5 mg PO BID Rx Instructions: must administer with a meal/food meloxicam 15 mg Tablet 15 mg PO QDAY fluticasone propionate [Flovent HFA] 220 mcg/actuation Hfa Aerosol Inhaler 2 puff INHALATION BID lisinopril 40 mg Tablet 40 mg PO QDAY ezetimibe 10 mg Tablet 10 mg PO QDAY Spiriva Respimat 2.5 mcg/actuation Mist 1 inh INHALATION BID Referrals: Ian Senior [Primary Care Provider] - In 1 week Problem List Clinical Impression: Acute pain of right knee Patient/Caregiver Discharge Instructions Education Materials: Knee Pain Print Language: Portuguese Stand Alone Forms: Anita Award Info., Patient Portal Info Letter PA/ADAPTED PHYSICAL EDUCATION TEACHER Supervising Physician PA/ADAPTED PHYSICAL EDUCATION TEACHER Supervising Physician: Brijesh
[2024-11-15] MEDS: LIDOCAINE 5% 1 PATCH TOP (00:12)
== END 2024-11-15 01:36 | disposition home or self-care (01) ==
PROVIDERS: Emergency Provider Emergency Medicine; PCP Internal Medicine
DX: M25.561 Pain in right knee (principal)
CPT/HCPCS: 73562; 99283; J3490

== ENCOUNTER 2024-12-10 14:12 | Emergency (ER) | payer OTHER, MEDICARE, SELFPAY ==
[2024-12-10 14:34] VITALS: PULSE 94; RESP 18; O2SAT 92
[2024-12-10 14:42] VITALS: BP 103/66; PULSE 95; RESP 20; TEMP 36.8; O2SAT 100
[2024-12-10 16:05] VITALS: BP 110/61; PULSE 100; RESP 18; TEMP 36.9; O2SAT 97
[2024-12-10] MEDS: SODIUM CHLORIDE 0.9% 500 ML 500 ML 999 ML IV (16:19)
[2024-12-10 16:29] LABS: Basophils % (Auto) 0 % (0-2.5); Eosinophils # (Auto) 0.3 Thou/mm3 (0.0-0.5); Eosinophils % (Auto) 2 % (0-10); Hematocrit 28.1 % (41.0-53.0); Hemoglobin 9.7 g/dL (13.5-16.0); Immature Granulocytes % (Auto) 0 % (0-0); Immature Granulocytes Auto 0.03 Thou/mm3 (0.00-0.00); Lymphocytes # (Auto) 0.3 Thou/mm3 (1.0-4.8); Lymphocytes % (Auto) 2 % (10-50); Mean Corpuscular HGB Conc 34.5 g/dl (31.0-37.0); Mean Corpuscular Hemoglobin 29.3 pg (25.0-35.0); Mean Corpuscular Volume 85 fL (80-100); Monocytes # (Auto) 0.4 Thou/mm3 (0.0-0.8); Monocytes % (Auto) 3 % (0-12); Neutrophils # (Auto) 13.1 Thou/mm3 (1.8-7.7); Neutrophils % (Auto) 93 % (37-80); Nucleated Red Blood Cell % 0 /100 WBC (0); Platelet Count 276 Thou/mm3 (140-440); RDW Standard Deviation 45.3 fL (35.1-43.9); Red Blood Count 3.31 Miln/mm3 (4.50-5.90); White Blood Count 14.2 Thou/mm3 (3.8-10.6)
--- NOTE | 2024-12-10 16:31 | PD.EDADULT ---
ED General RME/HPI General Chief complaint: General Adult/Misc Complain Stated complaint: HYPOTENSION Arrival date/time: 12/10/24 14:12 Limitations: no limitations RME / HPI RME / HPI narrative: 69 year old male presents to the ED for evaluation of low blood pressure and knee pain. The patient reports checking his vital signs at home and noting a blood pressure of 93/50. He was recently evaluated at [facility], where he was diagnosed with a stable abdominal aortic aneurysm measuring 4.3 cm, anemia of chronic disease, aortic regurgitation, COPD, descending thoracic aortic aneurysm, hypertension, peripheral artery disease, and renal azotemia. The patient was sent to [facility] by his primary care provider for weakness and low blood pressure, with a hemoglobin level of 8. Although blood transfusion was recommended, [facility] opted not to proceed with transfusion at that time. Today, the patient reports feeling more weak and dizzy, particularly when sitting up. Additionally, he complains of ongoing knee pain, which he attributes to his known knee arthritis. No associated chest pain, shortness of breath, or other new symptoms are reported. Related Data Home Medications ?Medication ?Instructions ?Recorded ?Confirmed spironolactone 25 mg tablet 25 mg PO QDAY 03/29/19 08/20/22 clopidogrel 75 mg tablet 75 mg PO DAILY 12/05/21 08/20/22 pramipexole 0.25 mg tablet 0.25 mg PO HS 12/05/21 08/20/22 carvedilol 12.5 mg tablet 12.5 mg PO BID 08/20/22 08/20/22 ezetimibe 10 mg tablet 10 mg PO QDAY 08/20/22 08/20/22 fluticasone propionate 220 2 puff inhalation BID 08/20/22 08/20/22 mcg/actuation HFA aerosol inhaler (Flovent HFA) lisinopril 40 mg tablet 40 mg PO QDAY 08/20/22 08/20/22 meloxicam 15 mg tablet 15 mg PO QDAY 08/20/22 08/20/22 tiotropium bromide 2.5 1 inh inhalation BID 08/20/22 08/20/22 mcg/actuation mist for inhalation (Spiriva Respimat) Previous Rx's ?Medication ?Instructions ?Recorded acetaminophen 650 mg 650 mg PO Q8H PRN pain #30 tabs 11/15/24 tablet,extended release (Tylenol 8 Hour) lidocaine 5 % topical patch 1 patch topical QDAY PRN pain #15 11/15/24 ea Allergies Allergy/AdvReac Type Severity Reaction Status Date / Time No Known Allergies Allergy Verified 11/14/24 23:37 Review of Systems Review of Systems Systems Reviewed: All systems reviewed, normal except as documented Past Medical History Past Medical History NEUROLOGIC: Positive Neurological Disorders CARDIAC: Positive Cardiac Disorders, Aneurysm, Congestive Heart Failure, Deep Vein Thrombosis and Hypertension RESPIRATORY: Positive Chronic Obstructive Pulmonary Disease (COPD), Emphysema and Pneumonia GASTROINTESTINAL: Positive Gastrointestinal Disorders and Ulcer MUSCULOSKELETAL: Positive Musculoskeletal Disorders and Arthritis HEMATOLOGIC: Positive Blood Disorders and Anemia OTHER HISTORY: Positive Hospitalization, Chicken Pox, Measles and Mumps Family History FAMILY HISTORY: Positive Family Respiratory Disorders Surgical History SURGICAL: Positive Vascular Surgery, Angiogram, Tonsillectomy, Abdominal Surgery and Amputation Social History SMOKING STATUS: Former smoker SECOND HAND EXPOSURE: Yes SUBSTANCE USE: does not use ED Exam General Limitations: Present no limitations General appearance: Present alert and other (Pale ) Head Head exam: Present atraumatic Eye Eye exam: Present normal appearance, PERRL and EOMI ENT ENT exam: Present normal exam, normal oropharynx and mucous membranes moist Neck Neck exam: Present normal inspection, full ROM and trachea midline Chest Chest inspection: Present normal inspection and symmetric chest wall rise Respiratory Respiratory exam: Present normal lung sounds bilaterally Cardiovascular Cardiovascular exam: Present regular rate, normal rhythm and normal heart sounds Abdominal Exam Abdominal exam: Present soft and normal bowel sounds Extremities Exam Extremities exam: Present normal inspection, full ROM and other (No edema of the knees or legs, no deformity, no effusion ) Back Exam Back exam: Present normal inspection and full ROM Neurological Exam Neurological exam: Present alert, oriented X3 and CN II-XII intact Psychiatric Psychiatric exam: Present normal affect and normal mood Skin Skin exam: Present warm, dry, intact, normal color and pallor Course Quality Measures none Orders Category Date Time Status CBC Stat Lab 12/10/24 16:08 Completed CMP [Comprehensive Metabolic Panel] Stat Lab 12/10/24 16:08 Completed Prothrombin Time with INR Stat Lab 12/10/24 16:08 Completed Type and Screen Stat Lab 12/10/24 16:08 Completed Sodium Chloride 0.9% 500 ml [Ns] 500 ml Med 12/10/24 15:50 Discontinued IV 999 mls/hr Vital Signs Vital signs: Vital Signs Temperature 98.2 F 12/10/24 14:42 Pulse Rate 95 12/10/24 14:42 Respiratory Rate 20 12/10/24 14:42 Blood Pressure 103/66 12/10/24 14:42 Pulse Oximetry (%) 100 12/10/24 14:42 Oxygen Delivery Method Room Air 12/10/24 14:42 Pulse ox is 100% on room air which is adequate. Discharge Plan Plan Patient Disposition: HOME (Self Care) Prescriptions/Referrals Prescriptions/Med Rec: No Action spironolactone 25 mg Tablet 25 mg PO QDAY clopidogrel 75 mg tablet 75 mg PO DAILY Patient Comments: TAKE 1 TABLET BY MOUTH EVERY DAY FOR 30 DAYS pramipexole 0.25 mg tablet 0.25 mg PO HS Patient Comments: TAKE ONE TABLET BY MOUTH AT BEDTIME FOR 30 DAYS carvedilol 12.5 mg Tablet 12.5 mg PO BID Rx Instructions: must administer with a meal/food meloxicam 15 mg Tablet 15 mg PO QDAY fluticasone propionate [Flovent HFA] 220 mcg/actuation Hfa Aerosol Inhaler 2 puff INHALATION BID lisinopril 40 mg Tablet 40 mg PO QDAY ezetimibe 10 mg Tablet 10 mg PO QDAY Spiriva Respimat 2.5 mcg/actuation Mist 1 inh INHALATION BID acetaminophen [Tylenol 8 Hour] 650 mg tablet extended release 650 mg PO Q8H PRN (Reason: pain) Qty: 30 0RF lidocaine 5 % adhesive patch,medicated 1 patch topical QDAY PRN (Reason: pain) Qty: 15 0RF Rx Instructions: leave on most painful area for up to 12 hrs Referrals: Ekaterina Knott MD [Primary Care Provider] - In 1 week Problem List Clinical Impression: Dehydration, Anemia Patient/Caregiver Discharge Instructions Education Materials: Anemia, ED Dehydration (Adult) Additional Instructions: Drink plenty of fluids. Follow-up with your primary care doctor in 3 to 5 days for recheck. You can return to the emergency department sooner if symptoms worsen or if you notice any new, concerning issues. Print Language: Georgian Stand Alone Forms: Anita Award Info., Patient Portal Info Letter MDM Narrative [facility] hospital course: Norma Lemos, laureano scribing for and in the presence of Dr. Mosquera. Hemoglobin while at [facility] was 8 and today hemoglobin is 9. Blood transfusion not indicated. Patient advised to increase water intake. Clinical Information Provided by patient and EMS Medical Records Reviewed [facility] (I reviewed ED visit on 11/14/2024 for knee pain ) and EMS Meds/Rx Considered, not Ordered None Labs/Rad/Tests considered, not Ordered None Chronic Illness/Social Conditions which may negatively complicate care or outcome(s)-explain: COPD EKG EKG not done Lab Interpretation Labs: interpreted by me and see narrative above Imaging Imaging interpretation: none Medication Administration(s) Medication Administration History Discontinued Medications Sodium Chloride (Ns) 500 mls @ 999 mls/hr IV .Q31M ONE Stop: 12/10/24 16:20 Last Infusion: 12/10/24 17:01 Dose: Infused Documented By: Admin: 12/10/24 16:19 Dose: 999 mls/hr Documented By: QUINTON Comments: SCANNER NOT WORKING See above Diagnosis Most likely dx, and/or detailed dx discussion: Dehydration Anemia
[2024-12-10 16:35] LABS: Prothrombin Time 11.1 Seconds (9.0-12.2)
[2024-12-10 16:40] LABS: Alanine Aminotransferase 13 U/L (10-49); Albumin, Serum 4.2 gm/dL (3.4-4.8); Albumin/Globulin Ratio 1.8 (1.2-2.2); Alkaline Phosphatase 117 U/L (46-116); Anion Gap 8 (7-16); Aspartate Amino Transferase 24 U/L (0-34); BUN/Creatinine Ratio 16 Ratio (12-20); Bilirubin,Total 0.3 mg/dL (0.3-1.2); Blood Urea Nitrogen 23 mg/dL (9-23); Calcium 8.5 mg/dL (8.3-10.6); Calcium (Corrected) 8.5 mg/dL (8.5-10.1); Carbon Dioxide 19.7 mMol/L (20.0-31.0); Chloride 103 mMol/L (98-107); Creatinine (Component) 1.4 mg/dL (0.6-1.3); Globulin 2.3 gm/dL (2.3-3.5); Glucose 105 mg/dL (74-106); Osmolality,Calculated 266 (275-295); Sodium 131 mMol/L (136-145); Total Protein 6.5 gm/dL (5.7-8.2); eGFR 54 See Note
[2024-12-10 17:33] VITALS: BP 127/69; PULSE 109; RESP 19; TEMP 37.3; O2SAT 100
== END 2024-12-10 17:40 | disposition home or self-care (01) ==
PROVIDERS: Emergency Provider Family Medicine; PCP Family Medicine
DX: E86.0 Dehydration (principal); D63.8 Anemia in other chronic diseases classified elsewhere; M17.10 Unilateral primary osteoarthritis, unspecified knee; I35.1 Nonrheumatic aortic (valve) insufficiency; I71.23 Aneurysm of the descending thoracic aorta, without rupture; J44.9 Chronic obstructive pulmonary disease, unspecified; I10 Essential (primary) hypertension; I71.40 Abdominal aortic aneurysm, without rupture, unspecified; I73.9 Peripheral vascular disease, unspecified
CPT/HCPCS: 36415; 80053; 85025; 85610; 86850; 86900; 86901; 96360; 99284; J7040

== ENCOUNTER 2024-12-12 01:36 | Emergency (ER) | payer OTHER, MEDICARE, SELFPAY ==
[2024-12-12 01:41] VITALS: PULSE 97; RESP 17; O2SAT 97
[2024-12-12 01:46] VITALS: BMI 21.7
[2024-12-12 02:03] VITALS: BP 110/74; PULSE 96; RESP 16; TEMP 37; O2SAT 99
--- NOTE | 2024-12-12 02:31 | PD.EDNV ---
Nausea/Vomit./Diarrhea-RME/HPI General Chief complaint: Nausea/Vomiting/Diarrhea Stated complaint: DIARRHEA Time Seen by Provider: 12/12/24 02:28 Arrival date/time: 12/12/24 01:36 RME / HPI RME / HPI Narrative: This section includes all my notes and documentations, including HPI, PE, and ED course. Neil Owen MD HPI: 69yo male with a history of abdominal aortic aneurysm measuring 4.3 cm, anemia of chronic disease, aortic regurgitation, COPD, descending thoracic aortic aneurysm, HTN, peripheral artery disease, and renal azotemia BIBA from home presents with abdominal pain and diarrhea. Patient states he has a history of gallstones and was supposed to have his [place]bl[place], but has been unable to get the surgery scheduled with his surgeon. Patient states he's been having progressively worsening intermittent right-sided abdominal pain for the last few days, reporting he's also had significant diarrhea for a few days. Patient denies any fever, chills, N/V or any other associated symptoms. No other complaints reported. ROS: All negative except as documented in HPI. Physical Exam: General: Alert and oriented. No acute distress when remaining still. Eyes: Conjunctivae and lids clear. ENT: No nasal congestion. Neck: Supple. Heart: RRR. Lungs: No respiratory distress. Good air movement. No rhonchi, wheezing, rales. Abdomen: Soft with upper abdominal tenderness. Normal bowel sounds. No distension. No rebound or guarding. Back: No CVA tenderness. Skin: Warm and dry. Neuro: Alert and oriented X 3. I ordered IV fluid and Zofran and morphine and diagnostic tests. At 6 AM on 12/12/2024, the care of the patient was transferred to Dr. Mosquera. Neil Owen MD Related Data Home Medications ?Medication ?Instructions ?Recorded ?Confirmed spironolactone 25 mg tablet 25 mg PO QDAY 03/29/19 08/20/22 clopidogrel 75 mg tablet 75 mg PO DAILY 12/05/21 08/20/22 pramipexole 0.25 mg tablet 0.25 mg PO HS 12/05/21 08/20/22 carvedilol 12.5 mg tablet 12.5 mg PO BID 08/20/22 08/20/22 ezetimibe 10 mg tablet 10 mg PO QDAY 08/20/22 08/20/22 fluticasone propionate 220 2 puff inhalation BID 08/20/22 08/20/22 mcg/actuation HFA aerosol inhaler (Flovent HFA) lisinopril 40 mg tablet 40 mg PO QDAY 08/20/22 08/20/22 meloxicam 15 mg tablet 15 mg PO QDAY 08/20/22 08/20/22 tiotropium bromide 2.5 1 inh inhalation BID 08/20/22 08/20/22 mcg/actuation mist for inhalation (Spiriva Respimat) Previous Rx's ?Medication ?Instructions ?Recorded acetaminophen 650 mg 650 mg PO Q8H PRN pain #30 tabs 11/15/24 tablet,extended release (Tylenol 8 Hour) lidocaine 5 % topical patch 1 patch topical QDAY PRN pain #15 11/15/24 ea Allergies Allergy/AdvReac Type Severity Reaction Status Date / Time No Known Allergies Allergy Verified 11/14/24 23:37 Review of Systems Review of Systems Systems Reviewed: All systems reviewed, normal except as documented Past Medical History Past Medical History NEUROLOGIC: Positive Neurological Disorders; Negative Cerebrovascular Accident, Transient Ischemic Attacks (TIA), Dementia, Alzheimer's Disease, Parkinson's Disease, Brain Tumor, Meningitis, Seizures, Epilepsy, Multiple Sclerosis, Cerebral Palsy, Amyotrophic Lateral Sclerosis (ALS/Denice Gehrig's), Guillain-[place] Syndrome, Spina Bifida, Paralysis, Peripheral Neuropathy, Camargo's Palsy, Subdural Hematoma, Migraine, Head Trauma, Spinal Cord Injury or Traumatic Brain Injury CARDIAC: Positive Cardiac Disorders, Aneurysm, Congestive Heart Failure, Deep Vein Thrombosis and Hypertension; Negative Myocardial Infarction, Cardiac Arrhythmia, Atrial Fibrillation, Angina, Heart Murmur, Coronary Artery Disease, Atherosclerotic Heart Disease, Peripheral Vascular Disease, Hypercholesterolemia, Congenital Heart Disease, Valvular Heart Disease, Rheumatic Fever, Cardiomyopathy, Edema, Pericarditis, Cellulitis or Varicose Veins RESPIRATORY: Positive Chronic Obstructive Pulmonary Disease (COPD), Emphysema and Pneumonia; Negative Asthma, Bronchitis, Pulmonary Fibrosis, Cystic Fibrosis or Pulmonary Embolism GASTROINTESTINAL: Positive Gastrointestinal Disorders and Ulcer; Negative Cirrhosis, Pancreatitis, Celiac Disease, Gall Bladder Disease, Gastrointestinal Bleed, Esophageal Varices, Ford's Esophagus, Colitis, Ulcerative Colitis, Diverticulitis, Diverticulosis, Colorectal Cancer, Irritable Bowel, Crohn's Disease, Obstructive Bowel, Hiatal Hernia, Hemorrhoids, Gastroesophageal Reflux Disease or Obesity GENITOURINARY: Negative Genitourinary Disorders, Renal Disease, Kidney Stones, Polycystic Kidney Disease, Neurogenic Bladder, Dialysis, Prostate Cancer or Benign Prostatic Hyperplasia REPRODUCTIVE: Negative Breast Cancer, Fibroids, Gonorrhea, Syphilis or Testicular Cancer MUSCULOSKELETAL: Positive Musculoskeletal Disorders, Arthritis and Fractures; Negative Muscular Dystrophy, Myasthenia Gravis, Marfan's Syndrome, Bone Cancer, Rheumatoid Arthritis, Osteoporosis, Degenerative Disk Disease, Gout, Scoliosis, Fibromyalgia, Degenerative Joint Disease, Osteomyelitis or Poliovirus ENT: Negative Cataracts, Glaucoma, Blind, Retinal Detachment, Macular Degeneration, Ear Infection, Deafness, Head Trauma or Eye Prosthesis ENDOCRINE: Negative Endocrine Disorders, Diabetes Mellitus Type 1, Diabetes Mellitus Type 2, Hypoglycemia, Yury's Syndrome, Walker's Disease, Hyperthyroidism, Hypothyroidism, Parathyroid Disease, Pituitary Disease, Systemic Lupus Erythematosus, Syndrome of Inappropriate Antidiuretic Hormone (SIADH), Adrenal Disease or Graves' Disease HEMATOLOGIC: Positive Blood Disorders and Anemia; Negative Sickle Cell Disease PSYCHO/SOCIAL: Negative Psychiatric Problems, Schizophrenia, Recreational Drug Use, Bipolar Disorder, Depression, Anxiety, Behavior Problems, Self-Mutilation, Attention Deficit Disorder, Attention Deficit Hyperactivity Disorder, Depression, Post Traumatic Stress Disorder or Eating Disorder OTHER HISTORY: Positive Hospitalization, Chicken Pox, Measles and Mumps; Negative Autoimmune Disease, Autism, Falls, Blood Transfusions, Blood Transfusion Reaction, Anesthesia Reactions, Organ Transplant, Chemotherapy, Radiation Therapy, MRSA, VRSA, Vancomycin-Resistant Enterococci, Rubella (Syriac Measles), Pertussis, Cancer, Breast Cancer, Cervical Cancer, Colorectal Cancer, Lung Cancer, Ovarian Cancer, Prostate Cancer or Testicular Cancer Family History FAMILY HISTORY: Positive Family Respiratory Disorders Surgical History SURGICAL: Positive Vascular Surgery, Angiogram, Tonsillectomy, Abdominal Surgery and Amputation; Negative Cardiac Surgery, Open Heart Surgery, Coronary Artery Bypass Graft, Valve Replacement, Coronary Stent, Cardiac Catheterization, Pacemaker, Auto Implanted Cardiovert Defib, Carotid Endarterectomy, Endocrine Surgery, Thyroidectomy, Gastric Bypass Surgery, Gastrostomy, Bowel Surgery, Nephrectomy, Transurethral Resection, Joint Replacement, Neurologic Surgery, Vasectomy or Organ Transplant Social History SMOKING STATUS: Former smoker SECOND HAND EXPOSURE: Yes SUBSTANCE USE: does not use ED Exam Narrative Physical exam: As noted in HPI. Course Quality Measures none Orders Category Date Time Status CT Screening NOW Care 12/12/24 02:33 Active Saline [Insert IV] NOW Care 12/12/24 02:[address] abdomen pelvis w con Stat Exams 12/12/24 02:33 Ordered US gall bladder Stat Exams 12/12/24 02:34 Taken Amylase Stat Lab 12/12/24 02:43 Results Bilirubin,Direct Stat Lab 12/12/24 02:43 Results CBC Stat Lab 12/12/24 02:43 Completed CMP [Comprehensive Metabolic Panel] Stat Lab 12/12/24 02:43 Results Lipase Stat Lab 12/12/24 02:43 Results Magnesium Stat Lab 12/12/24 02:43 Results UA, C/S IF [Urinalysis, C/S if Indicated] Stat Lab 12/12/24 02:34 Ordered Morphine Inj Med 12/12/24 02:32 Discontinued 6 mg IVP X1 ONE Ondansetron Inj [Zofran Inj] Med 12/12/24 02:32 Discontinued 4 mg IVP X1 ONE Sodium Chloride 0.9% 1000 ml [Ns] 1,000 ml Med 12/12/24 02:33 Discontinued IV 999 mls/hr Vital Signs Vital signs: Vital Signs Temperature 98.6 F 12/12/24 02:03 Pulse Rate 96 12/12/24 02:03 Respiratory Rate 16 12/12/24 02:03 Blood Pressure 110/74 12/12/24 02:03 Pulse Oximetry (%) 99 12/12/24 02:03 Oxygen Delivery Method Room Air 12/12/24 02:03 Nausea/Vomiting/Diarrhea MDM Narrative MDM Narrative:: Scribe Attestation: 12/12/24 - Lana Lemos am scribing for and in the presence of Dr. Owen. Patient data External records reviewed:: [facility] previous records (Per chart review, patient was seen here on 12/10/24 for anemia.) Clinical information provided by:: patient Social determinants that could affect healthcare access:: none Patient has the following chronic illnesses:: table abdominal aortic aneurysm measuring 4.3 cm, anemia of chronic disease, aortic regurgitation, COPD, descending thoracic aortic aneurysm, HTN, peripheral artery disease, renal azotemia How is presenting disease/condition affected by chronic disease/condition?: uneffected by Evaluation data The following diagnostics were reviewed and interpreted by me:: lab results, radiology exam(s) and other (specify) (Complete diagnostic test results are pending.) Lab and/or radiology exams considered but not ordered:: none Interpretation Summary: Complete diagnostic test results are pending. Medications / Prescriptions Medications / Prescriptions considered but not ordered:: none Medication administrations:: Medication Administration History Discontinued Medications Sodium Chloride (Ns) 1,000 mls @ 999 mls/hr IV .Q1H1M ONE Stop: 12/12/24 03:33 Last Infusion: 12/12/24 04:05 Dose: Infused Documented By: Admin: 12/12/24 02:43 Dose: 999 mls/hr Documented By: DT Morphine Sulfate (Morphine Sulf Inj 10 Mg/Ml Vial) 6 mg IVP X1 ONE Stop: 12/12/24 02:33 Last Admin: 12/12/24 02:46 Dose: 6 mg Documented By: DT Ondansetron HCl (Ondansetron Inj 2 Mg/Ml Inj 2 Ml) 4 mg IVP X1 ONE; Protocol Stop: 12/12/24 02:33 Last Admin: 12/12/24 02:47 Dose: 4 mg Documented By: JENNIFER NS, Morphine, Zofran Consultations Consultation(s) initiated? (list below): No Diagnosis Nausea Differential Diagnosis: traveler's diarrhea, food poisoning, gastroenteritis, clostridium difficile infection, drug-induced nausea and vomiting, dehydration and other (Biliary colic) Most likely diagnosis given after review of the tests above:: Complete diagnostic test results are pending. Admission Indicated Admission indicated?: not indicated Explain why admission is indicated or not indicated:: Complete diagnostic test results are pending. Admission Request Was there a request for admission?: No Disposition Plan Disposition Plan: other (specify) (Care of the patient was transferred to Dr. Mosquera. ) Discharge Plan Prescriptions/Referrals Prescriptions/Med Rec: No Action spironolactone 25 mg Tablet 25 mg PO QDAY clopidogrel 75 mg tablet 75 mg PO DAILY Patient Comments: TAKE 1 TABLET BY MOUTH EVERY DAY FOR 30 DAYS pramipexole 0.25 mg tablet 0.25 mg PO HS Patient Comments: TAKE ONE TABLET BY MOUTH AT BEDTIME FOR 30 DAYS carvedilol 12.5 mg Tablet 12.5 mg PO BID Rx Instructions: must administer with a meal/food meloxicam 15 mg Tablet 15 mg PO QDAY fluticasone propionate [Flovent HFA] 220 mcg/actuation Hfa Aerosol Inhaler 2 puff INHALATION BID lisinopril 40 mg Tablet 40 mg PO QDAY ezetimibe 10 mg Tablet 10 mg PO QDAY Spiriva Respimat 2.5 mcg/actuation Mist 1 inh INHALATION BID acetaminophen [Tylenol 8 Hour] 650 mg tablet extended release 650 mg PO Q8H PRN (Reason: pain) Qty: 30 0RF lidocaine 5 % adhesive patch,medicated 1 patch topical QDAY PRN (Reason: pain) Qty: 15 0RF Rx Instructions: leave on most painful area for up to 12 hrs Referrals: Ian Senior [Primary Care Provider] - In 1 week Problem List Clinical Impression: Abdominal pain, Diarrhea Patient/Caregiver Discharge Instructions Print Language: Romansh
--- NOTE | 2024-12-12 02:33 | XR_ITS ---
Examination: CT abdomen with intravenous contrast CT pelvis with intravenous contrast 2-D coronal reconstructions 2-D sagittal reconstructions Date and time of exam:December 11, 2024 0609 hours Comparison October 30, 2024 INDICATIONS: Upper abdominal pain beginning 3 days ago. CTDI: vol (mGy) 5.83 DLP: (mGycm) 317 Technique: Multiple axial sections of the abdomen and pelvis have been obtained. 64 slice high-resolution scanner used. 3 mm axial sections have been obtained, post intravenous injection of 30 cc Isovue 300 2-D sagittal, coronal reconstructions obtained. Low dose protocols were performed. One or more of the following dose reduction techniques were used; automated exposure control, adjustment of the mA and/or KV according to patient size, use of iterative reconstruction technique. Findings: Hepatomegaly 18 cm No focal liver lesions Please see the gallbladder sonogram report today Biliary stent satisfactory position, nonobstructed millimeters Minimally dilated pancreatic duct No pancreatic mass, there are pancreatic calcifications Bilateral 1 to 2 mm renal calculi, no hydronephrosis Transverse dimension infrarenal abdominal aorta 4.6 cm with extensive chronic thrombus No bowel obstruction Opaque material again noted in the right lower abdomen visualized on the October 30, 2024 exam No pericecal inflammatory change Distended urinary bladder Left inguinal hernia with a small bowel loop in the hernia, axial image 167 but no definite incarcerated bowel Rectal wall appears thickened Prostate calcifications Prominent osteopenia IMPRESSION: Biliary stent in satisfactory position Tiny bilateral nonobstructing renal calculi, no hydronephrosis Infrarenal abdominal aortic aneurysm transverse dimension 4.6 cm with chronic thrombus Left inguinal hernia with a small bowel loop in the hernia defect but no incarcerated bowel or definite bowel obstruction
--- NOTE | 2024-12-12 02:34 | XR_ITS ---
Examination: Abdomen sonogram, Limited Date and time of exam: December 12, 2024 0318 hours INDICATIONS: Right upper abdominal pain beginning 3 days ago Technique: Real-time henry scale transabdominal sonographic images of the upper abdomen obtained. Findings: 9 mm gallstone Gallbladder wall 0.3 cm no edema Common bile duct 0.4 cm Pancreas obscured by bowel gas Liver 15.8 cm smooth contour and no focal liver lesions Normal hepatopedal portal venous flow Patent IVC IMPRESSION: Cholelithiasis, negative for cholecystitis
[2024-12-12] MEDS: SODIUM CHLORIDE 0.9% 1000 ML 1,000 ML 999 ML IV (02:43)
[2024-12-12] MEDS: MORPHINE SULF INJ 10 MG/ML VIAL 6 MG IVP (02:46)
[2024-12-12] MEDS: ONDANSETRON INJ 2 MG/ML INJ 2 ML 4 MG IVP (02:47)
[2024-12-12 02:53] LABS: Basophils % (Auto) 1 % (0-2.5); Eosinophils # (Auto) 0.2 Thou/mm3 (0.0-0.5); Eosinophils % (Auto) 2 % (0-10); Hematocrit 25.1 % (41.0-53.0); Immature Granulocytes % (Auto) 0 % (0-0); Immature Granulocytes Auto 0.02 Thou/mm3 (0.00-0.00); Lymphocytes # (Auto) 0.7 Thou/mm3 (1.0-4.8); Lymphocytes % (Auto) 9 % (10-50); Mean Corpuscular HGB Conc 33.9 g/dl (31.0-37.0); Mean Corpuscular Volume 86 fL (80-100); Monocytes # (Auto) 0.7 Thou/mm3 (0.0-0.8); Monocytes % (Auto) 8 % (0-12); Neutrophils # (Auto) 6.7 Thou/mm3 (1.8-7.7); Neutrophils % (Auto) 81 % (37-80); Nucleated Red Blood Cell % 0 /100 WBC (0); Platelet Count 249 Thou/mm3 (140-440); RDW Standard Deviation 45.2 fL (35.1-43.9); Red Blood Count 2.93 Miln/mm3 (4.50-5.90); White Blood Count 8.3 Thou/mm3 (3.8-10.6)
[2024-12-12 03:34] LABS: Hemoglobin 8.5 g/dL (13.5-16.0)
[2024-12-12 04:00] VITALS: BP 114/85; PULSE 85; RESP 14; TEMP 37; O2SAT 99
--- NOTE | 2024-12-12 04:51 | PRELIM_ITS ---
Right upper quadrant abdominal ultrasound with Doppler and wave Doppler spectral analysis. December 12, 2024 at 0318 hours Clinical history: Right upper quadrant tenderness. Technique: Grayscale and color flow images of the right upper quadrant are provided. Hepatic and portal veins were also imaged with color flow images. Comparison: No prior study is available for comparison. Findings: The liver is normal in echogenicity. No intrahepatic biliary ductal dilatation. Gallstone. Maldonado sign is not available. No gallbladder wall thickening or pericholecystic fluid is demonstrated. The common bile duct is normal in caliber at 3.5 mm. The pancreas is unremarkable to the extent visualized. The imaged portions of the right kidney are within normal limits. The portal vein is patent with hepatopetal flow with normal wave Doppler spectral analysis. Impression: Gallstones without evidence of acute cholecystitis. If the clinical suspicion for acute cholecystitis is still high consider correlation with HIDA scan. Report Electronically Signed By: Inderjit Ruiz 12/12/2024 4:50:59 AM [EST]
[2024-12-12 05:16] LABS: Alanine Aminotransferase 27 U/L (10-49); Albumin, Serum 4.3 gm/dL (3.4-4.8); Alkaline Phosphatase 101 U/L (46-116); Anion Gap 9 (7-16); Aspartate Amino Transferase 34 U/L (0-34); BUN/Creatinine Ratio 19 Ratio (12-20); Bilirubin,Direct 0.1 mg/dL (0.0-0.3); Bilirubin,Total 0.3 mg/dL (0.3-1.2); Blood Urea Nitrogen 33 mg/dL (9-23); Calcium 8.7 mg/dL (8.3-10.6); Calcium (Corrected) 8.7 mg/dL (8.5-10.1); Carbon Dioxide 19.2 mMol/L (20.0-31.0); Chloride 105 mMol/L (98-107); Creatinine (Component) 1.7 mg/dL (0.6-1.3); Estimated Creatinine Clearance 34.5 mL/min (>60); Globulin 2.2 gm/dL (2.3-3.5); Glucose 103 mg/dL (74-106); Lipase 39 U/L (12-53); Magnesium 2.1 mg/dL (1.6-2.6); Osmolality,Calculated 273 (275-295); Potassium 4.8 mMol/L (3.4-5.1); Sodium 133 mMol/L (136-145); Total Protein 6.5 gm/dL (5.7-8.2); eGFR 43 See Note
[2024-12-12 05:29] LABS: Amylase 75 U/L (30-118)
--- NOTE | 2024-12-12 06:39 | EDNOTE_ITS ---
Emergency Room Addendum Addendum Narrative: 0600: Care assumed from Dr. Owen, the previous shift emergency physician. Past medical, surgical, social and family history reviewed. Vitals and home medications reviewed. I will assume the care of the patient at this time, pending remainder of diagnostic tests and final disposition. Please refer to the emergency department record for history and examination from initial visit.? Physical exam by me shows patient under no acute distress at this time. 1042: Patient remains clinically stable throughout the emergency department visit. Re-assessment at the time of disposition demonstrates that the patient is in no acute distress. We reviewed all the results, analysis, and treatment plans. Patient is amenable to discharge. Strict return precautions were outlined. Patient was discharged in stable condition. Diagnoses: -Abdominal aortic aneurysm stable, without rupture -Cholelithiasis -Left inguinal hernia -Abdomianl pain -Diarrhea Results Objective Laboratory: Laboratory Last Values WBC 8.3 Thou/mm3 (3.8-10.6) D 12/12/24 02:43 RBC 2.93 Miln/mm3 (4.50-5.90) L 12/12/24 02:43 Hgb 8.5 g/dL (13.5-16.0) L 12/12/24 02:43 Hct 25.1 % (41.0-53.0) L 12/12/24 02:43 MCV 86 fL (80-100) 12/12/24 02:43 MCH 29.0 pg (25.0-35.0) 12/12/24 02:43 MCHC 33.9 g/dl (31.0-37.0) 12/12/24 02:43 RDW Std Deviation 45.2 fL (35.1-43.9) H 12/12/24 02:43 Plt Count 249 Thou/mm3 (140-440) 12/12/24 02:43 Neut % (Auto) 81 % (37-80) H 12/12/24 02:43 Lymph % (Auto) 9 % (10-50) L 12/12/24 02:43 [place] % (Auto) 8 % (0-12) 12/12/24 02:43 Eos % (Auto) 2 % (0-10) 12/12/24 02:43 Baso % (Auto) 1 % (0-2.5) 12/12/24 02:43 Neut # (Auto) 6.7 Thou/mm3 (1.8-7.7) 12/12/24 02:43 Lymph # (Auto) 0.7 Thou/mm3 (1.0-4.8) L 12/12/24 02:43 [place] # (Auto) 0.7 Thou/mm3 (0.0-0.8) 12/12/24 02:43 Eos # (Auto) 0.2 Thou/mm3 (0.0-0.5) 12/12/24 02:43 Baso # (Auto) 0.0 Thou/mm3 (0.0-0.2) 12/12/24 02:43 Immature Gran # (Auto) 0.02 Thou/mm3 (0.00-0.00) H 12/12/24 02:43 Absolute Nucleated RBC 0.00 Thou/mm3 (0.00-0.00) 12/12/24 02:43 Immature Gran % 0 % (0-0) 12/12/24 02:43 Nucleated RBC % 0 /100 WBC (0) 12/12/24 02:43 Sodium 133 mMol/L (136-145) L 12/12/24 02:43 Potassium 4.8 mMol/L (3.4-5.1) 12/12/24 02:43 Chloride 105 mMol/L (98-107) 12/12/24 02:43 Carbon Dioxide 19.2 mMol/L (20.0-31.0) L 12/12/24 02:43 Anion Gap 9 (7-16) 12/12/24 02:43 BUN 33 mg/dL (9-23) H 12/12/24 02:43 Creatinine 1.7 mg/dL (0.6-1.3) H 12/12/24 02:43 Estim Creat Clear Calc 34.5 mL/min (>60) L 12/12/24 02:43 eGFR 43 See Note (60-) L 12/12/24 02:43 BUN/Creatinine Ratio 19 Ratio (12-20) 12/12/24 02:43 Glucose 103 mg/dL (74-106) 12/12/24 02:43 Calculated Osmolality 273 (275-295) L 12/12/24 02:43 Calcium 8.7 mg/dL (8.3-10.6) 12/12/24 02:43 Corrected Calcium 8.7 mg/dL (8.5-10.1) 12/12/24 02:43 Magnesium 2.1 mg/dL (1.6-2.6) 12/12/24 02:43 Total Bilirubin 0.3 mg/dL (0.3-1.2) 12/12/24 02:43 Direct Bilirubin 0.1 mg/dL (0.0-0.3) 12/12/24 02:43 AST 34 U/L (0-34) 12/12/24 02:43 ALT 27 U/L (10-49) 12/12/24 02:43 Alkaline Phosphatase 101 U/L (46-116) 12/12/24 02:43 Total Protein 6.5 gm/dL (5.7-8.2) 12/12/24 02:43 Albumin 4.3 gm/dL (3.4-4.8) 12/12/24 02:43 Globulin 2.2 gm/dL (2.3-3.5) L 12/12/24 02:43 Albumin/Globulin Ratio 2.0 (1.2-2.2) 12/12/24 02:43 Amylase 75 U/L (30-118) 12/12/24 02:43 Lipase 39 U/L (12-53) 12/12/24 02:43 Ur Collection Type Clean Catch 12/12/24 06:41 Urine Color Lt-Yellow (Lt Yel-Yel) 12/12/24 06:41 Urine Clarity Clear (Clear/Hazy) 12/12/24 06:41 Urine pH 5.5 (5.0-7.0) 12/12/24 06:41 Ur Specific [place] 1.025 (1.001-1.035) 12/12/24 06:41 Urine Protein Trace (Neg - Trace) 12/12/24 06:41 Urine Glucose (UA) Negative (Negative) 12/12/24 06:41 Urine Ketones Negative (Negative) 12/12/24 06:41 Urine Blood Negative (Negative) 12/12/24 06:41 Urine Nitrite Negative (Negative) 12/12/24 06:41 Urine Bilirubin Negative (Negative) 12/12/24 06:41 Urine Urobilinogen (Auto) Negative mg/dL (0.0-1.0) 12/12/24 06:41 Ur Leukocyte Esterase Positive (Negative) 12/12/24 06:41 Urine RBC 1 /hpf (0-3) 12/12/24 06:41 Urine WBC 7 /hpf (0-5) H 12/12/24 06:41 Ur Squamous Epith Cells < 1 /hpf (0-5) 12/12/24 06:41 Urine Bacteria None (None) 12/12/24 06:41 Hyaline Casts 1 /hpf (0-1) 12/12/24 06:41 Ur Culture Indicated? Not Indicated 12/12/24 06:41 Imaging: Procedure(s): CT abdomen pelvis w con Accession Number(s): [id number] cc: Ian Senior; Neil Owen MD; Itz Walters MD~ Examination: CT abdomen with intravenous contrast CT pelvis with intravenous contrast 2-D coronal reconstructions 2-D sagittal reconstructions Date and time of exam:December 11, 2024 0609 hours Comparison October 30, 2024 INDICATIONS: Upper abdominal pain beginning 3 days ago. CTDI: vol (mGy) 5.83 DLP: (mGycm) 317 Technique: Multiple axial sections of the abdomen and pelvis have been obtained. 64 slice high-resolution scanner used. 3 mm axial sections have been obtained, post intravenous injection of 30 cc Isovue 300 2-D sagittal, coronal reconstructions obtained. Low dose protocols were performed. One or more of the following dose reduction techniques were used; automated exposure control, adjustment of the mA and/or KV according to patient size, use of iterative reconstruction technique. Findings: Hepatomegaly 18 cm No focal liver lesions Please see the gallbladder sonogram report today Biliary stent satisfactory position, nonobstructed millimeters Minimally dilated pancreatic duct No pancreatic mass, there are pancreatic calcifications Bilateral 1 to 2 mm renal calculi, no hydronephrosis Transverse dimension infrarenal abdominal aorta 4.6 cm with extensive chronic thrombus No bowel obstruction Opaque material again noted in the right lower abdomen visualized on the October 30, 2024 exam No pericecal inflammatory change Distended urinary bladder Left inguinal hernia with a small bowel loop in the hernia, axial image 167 but no definite incarcerated bowel Rectal wall appears thickened Prostate calcifications Prominent osteopenia IMPRESSION: Biliary stent in satisfactory position Tiny bilateral nonobstructing renal calculi, no hydronephrosis Infrarenal abdominal aortic aneurysm transverse dimension 4.6 cm with chronic thrombus Left inguinal hernia with a small bowel loop in the hernia defect but no incarcerated bowel or definite bowel obstruction Dictated By: Itz Walters MD Procedure(s): US gall bladder Accession Number(s): [id number] cc: Ian Senior; Neil Owen MD; Itz Walters MD~ Examination: Abdomen sonogram, Limited Date and time of exam: December 12, 2024 0318 hours INDICATIONS: Right upper abdominal pain beginning 3 days ago Technique: Real-time henry scale transabdominal sonographic images of the upper abdomen obtained. Findings: 9 mm gallstone Gallbladder wall 0.3 cm no edema Common bile duct 0.4 cm Pancreas obscured by bowel gas Liver 15.8 cm smooth contour and no focal liver lesions Normal hepatopedal portal venous flow Patent IVC IMPRESSION: Cholelithiasis, negative for cholecystitis Dictated By: Itz Walters MD
[2024-12-12 06:53] LABS: Collection Type, Urine Clean Catch
[2024-12-12] MEDS: SODIUM CHLORIDE 0.9% 500 ML 500 ML 999 ML IV (06:58)
[2024-12-12 07:05] LABS: Bilirubin,Urine Negative (Negative); Blood,Urine Negative (Negative); Clarity,Urine Clear (Clear/Hazy); Color,Urine Lt-Yellow (Lt Yel-Yel); Culture Indicated,Urine Not Indicated; Glucose, Urine Negative (Negative); Hyaline Casts,Urine 1 /hpf (0-1); Ketones,Urine Negative (Negative); Leukocyte Esterase,Urine Positive (Negative); Nitrite,Urine Negative (Negative); PH,Urine 5.5 (5.0-7.0); Protein,Urine Trace (Neg - Trace); RBC,Urine 1 /hpf (0-3); Specific Gravity,Urine 1.025 (1.001-1.035); Squamous Epithelial Cell,Urine < 1 /hpf (0-5); Urobilinogen,Urine Negative mg/dL (0.0-1.0); WBC,Urine 7 /hpf (0-5)
[2024-12-12 07:10] VITALS: BP 107/73; PULSE 87; RESP 15; TEMP 36.5; O2SAT 100
[2024-12-12 09:00] VITALS: BP 110/65; PULSE 90; RESP 17; TEMP 36.3; O2SAT 98
[2024-12-12 10:45] VITALS: BP 109/69; PULSE 92; RESP 19; TEMP 36.4; O2SAT 97
== END 2024-12-12 11:13 | disposition home or self-care (01) ==
PROVIDERS: Emergency Provider Emergency Medicine; PCP Internal Medicine
DX: I71.43 Infrarenal abdominal aortic aneurysm, without rupture (principal); K80.20 Calculus of gallbladder without cholecystitis without obstruction; K40.90 Unilateral inguinal hernia, without obstruction or gangrene, not specified as recurrent; N20.0 Calculus of kidney
CPT/HCPCS: 36415; 74177; 76705; 80053; 81001; 82150; 82248; 83690; 83735; 85025; 96360; 96361; 96375; 99285; A4649; J2270; J2405; J7030; J7040; Q9967

== ENCOUNTER 2024-12-26 12:56 | Outpatient (RCR) | payer OTHER, MEDICARE, SELFPAY | END 2025-01-16 23:59 | disposition home or self-care (01) | LOC: SCTC 12:56 | PROVIDERS: PCP Internal Medicine; Referring Provider Internal Medicine; Visit Provider Nurse Practitioner Family | DX: D50.9 Iron deficiency anemia, unspecified (principal); R86.1 Abnormal level of hormones in specimens from male genital organs; R91.8 Other nonspecific abnormal finding of lung field; J44.9 Chronic obstructive pulmonary disease, unspecified; Z87.891 Personal history of nicotine dependence; I10 Essential (primary) hypertension; Z87.19 Personal history of other diseases of the digestive system | CPT/HCPCS: 99212; G0463 ==

== ENCOUNTER 2025-01-11 07:22 | Outpatient (CLI) | payer OTHER, MEDICARE, SELFPAY ==
[2025-01-10 10:35] LABS: Basophils # (Auto) 0.1 Thou/mm3 (0.0-0.2); Basophils % (Auto) 1 % (0-2.5); Eosinophils # (Auto) 0.5 Thou/mm3 (0.0-0.5); Eosinophils % (Auto) 7 % (0-10); Hematocrit 28.1 % (41.0-53.0); Hemoglobin 9.5 g/dL (13.5-16.0); Immature Granulocytes % (Auto) 0 % (0-0); Immature Granulocytes Auto 0.02 Thou/mm3 (0.00-0.00); Lymphocytes # (Auto) 1.1 Thou/mm3 (1.0-4.8); Lymphocytes % (Auto) 16 % (10-50); Mean Corpuscular HGB Conc 33.8 g/dl (31.0-37.0); Mean Corpuscular Hemoglobin 27.9 pg (25.0-35.0); Mean Corpuscular Volume 82 fL (80-100); Monocytes # (Auto) 0.6 Thou/mm3 (0.0-0.8); Monocytes % (Auto) 8 % (0-12); Neutrophils # (Auto) 4.8 Thou/mm3 (1.8-7.7); Neutrophils % (Auto) 68 % (37-80); Nucleated Red Blood Cell % 0 /100 WBC (0); Platelet Count 244 Thou/mm3 (140-440); RDW Standard Deviation 45.7 fL (35.1-43.9); Red Blood Count 3.41 Miln/mm3 (4.50-5.90); White Blood Count 7.1 Thou/mm3 (3.8-10.6)
[2025-01-10 10:45] LABS: Partial Thromboplastin Time 27.9 Seconds (22.0-36.0)
[2025-01-10 10:55] LABS: Blood Urea Nitrogen 21 mg/dL (9-23); Creatinine (Component) 1.2 mg/dL (0.6-1.3); eGFR > 60 See Note
[2025-01-11] VITALS (10 sets, daily range): BP systolic 109–149; BP diastolic 72–88; PULSE 61–91; RESP 15–20; TEMP 36.7–37.2; O2SAT 96–100; BMI 21.6
--- NOTE | 2025-01-11 | XR_ITS ---
Examination: CT-guided percutaneous bone marrow aspiration right posterior superior iliac crest CT-guided percutaneous bone biopsy deep right posterior superior iliac crest CT pelvis without intravenous contrast Date and time of procedure: January 11, 2025 0911 hours INDICATIONS: Iron deficiency anemia unknown etiology Informed consent provided. A timeout was completed verifying correct patient, procedure, site and positioning. Technique: Axial 3 mm sections were obtained for localization of the right posterior superior iliac crest Appropriate area is marked. The patient's site was prepped and draped in sterile fashion Maximal sterile barrier technique utilized, including hand hygiene Local anesthesia was obtained with 1% lidocaine. Low dose protocols were performed. One or more of the following dose reduction techniques were used; automated exposure control, adjustment of the mA and/or KV according to patient size, use of iterative reconstruction technique. Utilizing CT fluoroscopic guidance 14-gauge bone biopsy needle placed in the right posterior superior iliac crest 5 cc marrow aspirate and 5 cm bone core obtained Patient appears in stable condition during this procedure. At completion of the procedure, the patient is in satisfactory condition. Estimated blood loss 2 cc Complete pathology report to follow. Impression: Successful CT-guided percutaneous bone marrow aspiration right posterior superior iliac crest Successful CT-guided percutaneous bone biopsy deep right posterior superior iliac crest
--- NOTE | 2025-01-11 08:30 | XR_ITS ---
Examination: CT-guided percutaneous biopsy pulmonary mass left lower lobe CT chest without intravenous contrast Moderate intravenous conscious sedation Date and time of procedure: January 11, 2025 0911 hours Informed consent provided. A timeout was completed verifying correct patient, procedure, site and positioning. Under physician supervision,Versed 1 mg fentanyl 100 mcg was administered intravenously for moderate sedation. Pulse oximetry, heart rate, blood pressure were continuously monitored within independent trained observer present. The physician spent 30 minutes of [id number] sedation time with the patient. Technique: Axial 3 mm sections were obtained for localization of the lung abnormality. Appropriate area is marked. The patient's site was prepped and draped in sterile fashion Maximal sterile barrier technique utilized, including hand hygiene Local anesthesia was obtained with 1% lidocaine. Low dose protocols were performed. One or more of the following dose reduction techniques were used; automated exposure control, adjustment of the mA and/or KV according to patient size, use of iterative reconstruction technique. Utilizing CT fluoroscopic guidance for core biopsies obtained with an 18-gauge needle Patient appears in stable condition during this procedure. At completion of the procedure, the patient is in satisfactory condition. Estimated blood loss 0 cc Complete pathology report to follow. Impression: Successful CT-guided percutaneous biopsy pulmonary mass left lower lobe
[2025-01-11] MEDS: fentaNYL CIT INJ 50 mCg/ML AMP 2ML 100 MCG IVP (09:25)
== END 2025-01-11 10:40 | disposition home or self-care (01) ==
LOC: SCAT 07:41 → SIRX 10:34
PROVIDERS: Radiology Diagnostic Radiology; PCP Family Medicine; Referring Provider Nurse Practitioner Family; Visit Provider Nurse Practitioner Family
DX: D50.9 Iron deficiency anemia, unspecified (principal)
CPT/HCPCS: 38221; 36415; 77012; 82565; 84520; 85025; 85610; 85730; J3010

== ENCOUNTER 2025-01-25 07:45 | Day surgery (SDC) | payer OTHER, MEDICARE, SELFPAY ==
[2025-01-25] VITALS (13 sets, daily range): BP systolic 126–167; BP diastolic 73–82; PULSE 83–97; RESP 10–20; TEMP 36.4–37.1; O2SAT 92–100; BMI 20.8
[2025-01-25] MEDS: SODIUM CHLORIDE 0.9% 500 ML 500 ML 20 ML IV (10:10)
[2025-01-25] MEDS: BENZOCAINE 20% (Hurricaine) SPRAY 1 DOSE TOP (10:10)
[2025-01-25] MEDS: fentaNYL CIT INJ 50 mCg/ML AMP 2ML (ASD USE ONLY) IVP (10:33)
[2025-01-25] MEDS: MIDAZOLAM INJ 1 MG/ML VIAL 2 ML (ASD USE ONLY) 2 MG IVP (10:33)
== END 2025-01-25 11:35 | disposition home or self-care (01) ==
PROVIDERS: PCP Internal Medicine; Referring Provider Specialist; Visit Provider Specialist
PROC: 0DBE8ZX Excision of Large Intestine, Via Natural or Artificial Opening Endoscopic, Diagnostic (ICD-10-PCS; CPT 45380; principal; 2025-01-25 09:30)
PROC: (CPT 43239; 2025-01-25 09:30)
DX: K29.51 Unspecified chronic gastritis with bleeding (principal); K31.A11 Gastric intestinal metaplasia without dysplasia, involving the antrum; K31.9 Disease of stomach and duodenum, unspecified; D50.9 Iron deficiency anemia, unspecified; T85.520A Displacement of bile duct prosthesis, initial encounter; J44.9 Chronic obstructive pulmonary disease, unspecified; I10 Essential (primary) hypertension; R60.9 Edema, unspecified; Z87.19 Personal history of other diseases of the digestive system; Z79.82 Long term (current) use of aspirin; Z79.899 Other long term (current) drug therapy; Y73.2 Prosthetic and other implants, materials and accessory gastroenterology and urology devices associated with adverse incidents; Y83.8 Other surgical procedures as the cause of abnormal reaction of the patient, or of later complication, without mention of misadventure at the time of the procedure
CPT/HCPCS: 43239; 43247; J1200; J2250; J3010; J7999; A9270

== ENCOUNTER 2025-02-13 13:17 | Outpatient (RCR) | payer OTHER, MEDICARE, SELFPAY | END 2025-02-16 23:59 | disposition home or self-care (01) | LOC: SCTC 13:17 | PROVIDERS: PCP Internal Medicine; Referring Provider Family Medicine; Visit Provider Nurse Practitioner Family | DX: D50.9 Iron deficiency anemia, unspecified (principal); E29.0 Testicular hyperfunction; R91.8 Other nonspecific abnormal finding of lung field; J44.9 Chronic obstructive pulmonary disease, unspecified; Z87.891 Personal history of nicotine dependence; I10 Essential (primary) hypertension; Z87.19 Personal history of other diseases of the digestive system | CPT/HCPCS: 96365; A4216; J7040; J7050; Q0138 ==

== ENCOUNTER 2025-03-08 13:57 | Outpatient (RCR) | payer OTHER, MEDICARE, SELFPAY | END 2025-03-19 23:59 | disposition home or self-care (01) | LOC: SCTC 13:57 | PROVIDERS: PCP Internal Medicine; Referring Provider Internal Medicine; Visit Provider Nurse Practitioner Family | DX: D50.9 Iron deficiency anemia, unspecified (principal); Z87.891 Personal history of nicotine dependence | CPT/HCPCS: 99212; G0463 ==

== ENCOUNTER → 2025-04-14 | Outpatient (CLI) | payer OTHER, MEDICARE, SELFPAY ==
--- NOTE | 2025-04-14 11:00 | XR_ITS ---
Examination: CT chest, without intravenous contrast. Sagittal and coronal 2-D reconstructions. Exam date and time: April 14, 2025, 11:00 AM, comparison CT chest abdomen pelvis October 30, 2024 INDICATIONS: Diagnosis iron deficiency anemia unspecified, history abdominal aortic aneurysm repair 2 years ago CTDI:vol (mGy) 7.09 DLP: (mGycm) : 75 Technique: Multiple 3.0 mm axial sections of the chest to been obtained. Bone and lung density settings are obtained. Sagittal and coronal 2-D reconstructions have been obtained. Low dose protocols were performed. One or more of the following dose reduction techniques were used; automated exposure control, adjustment of the mA and/or KV according to patient size, use of iterative reconstruction technique. Findings: Mediolateral dimension ascending thoracic aorta 4.6 cm Pulmonary artery segments are not enlarged Significant calcification left anterior descending left circumflex right coronary arteries COPD 2 mm pulmonary nodule right upper lobe image 48 3 mm pulmonary nodule left upper lobe image 118 2 mm pulmonary nodule right upper lobe image 120 2 mm pulmonary nodule right upper lobe image 121 No lobar pneumonia or pulmonary edema No visualized liver or splenic lesion Absent gallbladder Tiny renal calcifications 1 mm Small pancreatic calcifications Spleen not enlarged Prominent osteopenia with kyphosis dorsal spine secondary to chronic wedging mid dorsal vertebral bodies IMPRESSION: Aneurysmal dilatation ascending thoracic aorta Heavy coronary artery calcification COPD Multiple subcentimeter bilateral pulmonary nodules, with this study as baseline recommend 6 month follow-up CT chest without contrast
== END | disposition home or self-care (01) ==
LOC: CCTX 10:42
PROVIDERS: PCP Internal Medicine; Referring Provider Nurse Practitioner Family; Visit Provider Nurse Practitioner Family
DX: I71.20 Thoracic aortic aneurysm, without rupture, unspecified (principal); I25.10 Atherosclerotic heart disease of native coronary artery without angina pectoris; J44.9 Chronic obstructive pulmonary disease, unspecified
CPT/HCPCS: 71250

== ENCOUNTER 2025-04-20 14:24 | Outpatient (RCR) | payer OTHER, MEDICARE, SELFPAY ==
--- NOTE | 2025-05-14 21:59 | CTCFLWUP_ITS ---
Patient: YARELY GORMAN : 1955 Page 2 of 3 FOLLOW UP NOTE DATE OF SERVICE: 04/20/2025 NAME: YARELY GORMAN ACCOUNT: [id number] : 1955 AGE: 69 INTERVAL HISTORY: Patient follows us for anemia. Patient's last EGD did show gastritis. Patient unable to tolerate oral iron. Patient is scheduled for EGD evaluation at [facility]. In the past upper EGD revealed gastritis with hemorrhage and no cancer while colonoscopy showed hemorrhoids and intestinal metaplasia. Plan is to follow-up with the GI. CT scan from 04/14/2025 reviewed and needed repeat scan in 6 months as per radiology. ONCOLOGY HISTORY: DIAGNOSIS: Iron deficiency anemia, unspecified [ICD10] D50.9 Iron deficiency anemia. S/p Feraheme infusion (07/21/2023 - 08/11/2023) Multiple pulmonary nodules Hemorrhagic gastritis. Diverticulosis Mild difficulty swallowing and neck pain. [id number] smoking history. Patient stopped smoking about 4 years ago. COPD Hypertension Aortic aneurysm being followed by cardiothoracic surgeon in [place]. DATE OF DIAGNOSIS: 12/05/2021 STAGE/TNM: Not applicable TREATMENT HISTORY: Care?Plan Start?Date Cycle Day Intent HISTORY OF PRESENT ILLNESS: Yarely Gorman is a 69-year-old ENG speaking male with history of hypertension, COPD secondary to cigarette smoking is referred to hematology clinic for anemia. Following up with Dr. Dixon, GI. 12/05/2021: Hemoglobin 10.7, MCV 84, WBC 6.6, ANC 4.8, platelets 219,000. Creatinine 1.3. 08/20/2022: CT scan of the chest abdomen and pelvis with IV contrast 10/07/2021: Colonoscopy 04/02/2022: EGD? 08/20/2022: Hemoglobin 8.8, MCV 80, WBC 6.5, ANC 4.9, platelets 276,000. Creatinine 1.1. 10/28/2022: Hemoglobin 9.5, MCV 82, WBC 6.9, ANC 5.2, platelets 280,000. 01/29/2023: Hemoglobin 9.8, MCV 87, WBC 6.2, ANC 4.7, platelets 279,000. 05/29/2023: Hemoglobin 9.1, MCV 85, WBC 6.9, ANC 5.3, platelets 541,000, creatinine 1.02 folate 9.6, TSH 1.7, B12 768, ferritin 105 07/02/2023: Hemoglobin 9.8, MCV 86, WBC 7.6, ANC 5.9, platelets 330,000, iron saturation 12%, ferritin 27, B12 523, folic acid 7.2. 07/21/2023?08/11/2019: Patient received a total of 2040 mg of Feraheme. 07/30/2023: PET/CT scan 09/11/2023: Hemoglobin 10.3, MCV 90, WBC 5.6, ANC 4.0, platelets 245,000. 10/23/2023: Hemoglobin 11.5, MCV 90, WBC 6.5, ANC 4.8, platelets 271,000. 11/24/2023: CT scan of the chest without IV contrast 11/25/2023: Hemoglobin 11.6, MCV 93, WBC 6.5, ANC 4.6, platelets 271,000. OTHER MEDICAL HISTORY/CONDITIONS: chf copd anemia high blood pressure mumps coils/ anyrisum x 3 ulcer surgery 1980s hand surgery FAMILY HISTORY: Patient?denies?family?cancer?history. 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 Tobacco?Pack?per?Day:?0 Tobacco?Use?Years:?50 ETOH?Use:?denies Drug?Note:?denies Social?History?Note:?lives?with??? MEDICATIONS: 1. None Medications Last Reconciled by Alicia Deng MD on 04/20/2025 ALLERGIES: REVIEW OF SYSTEMS: A complete 14-point review of systems was performed and is negative except as noted in interval history. PHYSICAL EXAMINATION: VITAL SIGNS: Temperature?96.4, B/P?114/69, Oxygen?Saturation?96% Weight?135?lbs PAIN: 0 - No pain ECOG Performance Status: 1 - Symptomatic; ambulatory; restricted in strenuous activity GENERAL APPEARANCE: Appears well, in no apparent distress, appropriately interactive. HEENT: Normocephalic, no temporal wasting, normal conjunctiva, no scleral icterus, normal hearing, lips without lesions, neck normal range of motion. CARDIOVASCULAR: Not assessed. PULMONARY: Normal respiratory effort, no respiratory distress or use of accessory muscles, speaking in full sentences, no tachypnea. EXTREMITIES: No pedal edema or cyanosis. SKIN: Normal skin appearance. NEUROLOGIC: Alert and oriented x4. PSHYCHIATRIC: Appropriate affect, mood normal, behavior normal, intact thought and speech. LABORATORY DATA: I have personally reviewed and interpreted each of the patient?s relevant lab tests, abnormal findings are below: Date ASSESSMENT/PLAN: Yarely Gorman presents for follow-up of anemia with recent improvement in hemoglobin levels and pending workup for suspected IgM macroglobulin gammopathy. Anemia Assessment: Patient's anemia has shown improvement with hemoglobin increasing from 8.7 to 11.3. Previous bone marrow biopsy revealed normal cellular bone marrow with trilineage hematopoiesis and decreased iron storage. Flow cytometry showed no diagnostic immunophenotypic abnormalities. Upper EGD performed by Dr. Dixon demonstrated gastritis with hemorrhage, and biopsies were taken with results pending. Colonoscopy revealed hemorrhoids. Iron is elevated and advised to stop taking any iron supplement as ferritin is thousand 26 in February 16, 2025 Hemoglobin is 11.3 High ferritin also likely from his inflammation in the body 01/11/2025 bone marrow aspirate showed normal bone marrow and decreased iron storage Metaplasia of the gastric lining Advised to follow-up with the GI Patient likely had a precancerous lesion secondary to chronic irritation No H. pylori was noted on biopsy Advised to continue following up with GI for follow-up Smoking history Assessment: Patient has a history of smoking, which puts them at increased risk for various health issues, including lung cancer. Reviewed CT scan and have subcentimeter nodules Repeat scan in 6 months as per radiology Continue following up with PCP for management of COPD (smoking history), history of diverticulosis, history of hypertension, aortic aneurysm on blood thinner, plans for cholecystectomy soon. RETURN TO CLINIC: I reviewed the diagnosis, prognosis, and recommended treatment/procedure options with the patient (and/or their legal community health program representative), including the potential benefits, risks, side effects and alternative therapies. We also discussed the option of no treatment and the possibility of clinical trial participation, if applicable. All questions were addressed, and they demonstrated understanding. They provided informed consent to proceed with the proposed plan of care. BILLING AND COMPLIANCE: I reviewed external records from providers outside my specialty as summarized above. I spent a total of 50 minutes on this patient?s care on the day of their visit excluding time spent related to any billed procedures. This time includes time spent with the patient as well as time spent documenting in the medical record, reviewing patients records and tests, obtaining history, placing orders, communicating with other healthcare professionals, counseling the patient, family or caregiver, and/or care coordination for the diagnoses above. Electronically Signed by: George Gonzalez MD T: 9:57 PM CC: Ian?Nadeen?Magali,? PCP: Ian Olmedo Referring: Ian Olmedo This document was completed utilizing speech recognition software. Grammatical errors, random word insertions, pronoun errors, and incomplete sentences are an occasional consequence of this system due to software limitations, ambient noise, and hardware issues. Any formal questions or concerns about the content, text or information contained within the body of this dictation should be directly addressed to the provider for clarification.
== END 2025-05-19 23:59 | disposition home or self-care (01) ==
LOC: SCTC 14:24
PROVIDERS: PCP Internal Medicine; Referring Provider Internal Medicine; Visit Provider Internal Medicine Hematology & Oncology
DX: D50.9 Iron deficiency anemia, unspecified (principal); K29.71 Gastritis, unspecified, with bleeding; K64.9 Unspecified hemorrhoids; K31.A0 Gastric intestinal metaplasia, unspecified; Z87.891 Personal history of nicotine dependence
CPT/HCPCS: Q3014

== ENCOUNTER → 2025-05-05 | Outpatient (CLI) | payer OTHER, MEDICARE, SELFPAY ==
--- NOTE | 2025-05-05 10:30 | XR_ITS ---
Examination: CTA abdominal aorta iliofemoral runoff. 2-D sagittal coronal reconstructions. 3-D reconstructions, vascular May 05, 2025, 12:11 p.m. INDICATIONS: Diagnosis atherosclerosis of cahto arteries of the extremities, bilateral lower extremity pain and swelling 1 month Technique: Multiple CTA images of the abdominal aorta iliofemoral runoff arterial vessels, 2.0 mm slice thickness, post intravenous administration 130 cc Isovue 370 2-D sagittal coronal reconstructions. 3-D reconstructions, vascular 3-D postprocessing, including vascular maximum intensity projection images, 3-D volume rendering Low dose protocols were performed. One or more of the following dose reduction techniques were used; automated exposure control, adjustment of the mA and/or KV according to patient size, use of iterative reconstruction technique. 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 Heavy calcification common iliac and external iliac arteries Multiple dense opacities in the right pelvis Heavy calcification common femoral arteries Occlusion right superficial femoral artery, significant filling profunda branches Reconstitution distal right superficial femoral artery right popliteal artery with very poor opacification distally and no filling of trifurcation arteries below the knee Occlusion left superficial femoral artery, significant filling left profunda branches Reconstitution distal left superficial femoral artery left popliteal artery Occlusion proximal left anterior tibial artery Severe reduction in caliber main continuation trunk left posterior tibial arteries, no filling of the dorsalis pedis artery on the left IMPRESSION: Noncalcified pulmonary nodules as above, consider elective CT chest without contrast follow-up Infrarenal abdominal aortic aneurysm transverse dimensions 5.0 x 3.6 cm Occlusion right superficial femoral artery with reconstitution distally including right popliteal artery, no filling of trifurcation arteries below the right knee Occlusion left superficial femoral artery reconstitution distal left superficial femoral artery left popliteal artery Occlusion proximal left anterior tibial artery Severe reduction in caliber main continuation trunk left posterior tibial arteries
== END | disposition home or self-care (01) ==
LOC: SCAT 10:58
PROVIDERS: PCP Family Medicine; Referring Provider Nurse Practitioner Family; Visit Provider Nurse Practitioner Family
DX: R91.8 Other nonspecific abnormal finding of lung field (principal); I72.4 Aneurysm of artery of lower extremity; I71.40 Abdominal aortic aneurysm, without rupture, unspecified
CPT/HCPCS: 75635; A4649; Q9967

== ENCOUNTER → 2025-07-19 | Outpatient (CLI) | payer OTHER, MEDICARE, SELFPAY ==
[2025-07-19 12:03] LABS: Basophils # (Auto) 0.0 Thou/mm3 (0.0-0.2); Basophils % (Auto) 1 % (0-2.5); Eosinophils # (Auto) 0.3 Thou/mm3 (0.0-0.5); Eosinophils % (Auto) 5 % (0-10); Hematocrit 33.5 % (41.0-53.0); Hemoglobin 11.4 g/dL (13.5-16.0); Immature Granulocytes Auto 0.01 Thou/mm3 (0.00-0.00); Lymphocytes # (Auto) 0.6 Thou/mm3 (1.0-4.8); Lymphocytes % (Auto) 10 % (10-50); Mean Corpuscular HGB Conc 34.0 g/dl (31.0-37.0); Mean Corpuscular Hemoglobin 30.8 pg (25.0-35.0); Mean Corpuscular Volume 91 fL (80-100); Monocytes # (Auto) 0.4 Thou/mm3 (0.0-0.8); Monocytes % (Auto) 7 % (0-12); Neutrophils # (Auto) 4.4 Thou/mm3 (1.8-7.7); Neutrophils % (Auto) 78 % (37-80); Nucleated Red Blood Cell # 0.00 Thou/mm3 (0.00-0.00); Nucleated Red Blood Cell % 0 /100 WBC (0); Platelet Count 244 Thou/mm3 (140-440); RDW Standard Deviation 44.6 fL (35.1-43.9); Red Blood Count 3.70 Miln/mm3 (4.50-5.90); White Blood Count 5.6 Thou/mm3 (3.8-10.6)
[2025-07-19 12:15] LABS: Alanine Aminotransferase 20 U/L (10-49); Albumin, Serum 4.5 gm/dL (3.4-4.8); Albumin/Globulin Ratio 2.1 (1.2-2.2); Alkaline Phosphatase 117 U/L (46-116); Anion Gap 7 (7-16); Aspartate Amino Transferase 22 U/L (0-34); BUN/Creatinine Ratio 16 Ratio (12-20); Bilirubin,Total 0.4 mg/dL (0.3-1.2); Blood Urea Nitrogen 16 mg/dL (9-23); Calcium 8.8 mg/dL (8.3-10.6); Calcium (Corrected) 8.8 mg/dL (8.5-10.1); Carbon Dioxide 29.0 mMol/L (20.0-31.0); Chloride 95 mMol/L (98-107); Creatinine (Component) 1.0 mg/dL (0.6-1.3); Globulin 2.1 gm/dL (2.3-3.5); Glucose 87 mg/dL (74-106); Osmolality,Calculated 262 (275-295); Potassium 4.7 mMol/L (3.4-5.1); Sodium 131 mMol/L (136-145); Total Protein 6.6 gm/dL (5.7-8.2); eGFR > 60 See Note
[2025-07-24 13:51] LABS: Albumin 4.1 g/dL (3.8-4.8); Alpha-1-Globulin 0.3 g/dL (0.2-0.3); Alpha-2-Globulin 0.7 g/dL (0.5-0.9); Beta-1-Globulin 0.4 g/dL (0.4-0.6); Beta-2-globulin 0.2 g/dL (0.2-0.5); Gamma Globulin 0.7 g/dL (0.8-1.7); Immunoglobulin A 80 mg/dL (70-320); Immunoglobulin G 755 mg/dL (600-1540); Kappa Light Chain, Free 31.6 mg/L (3.3-19.4); Lambda Light Chain, Free 32.5 mg/L (5.7-26.3)
[2025-07-25 06:27] LABS: Beta 2 Microglobulin 3.26 mg/L (< OR = 2.51); Immunoglobulin M 245 mg/dL (50-300); Kappa/Lambda, Free Ratio 0.97 (0.26-1.65); Protein, total, serum 6.4 g/dL (6.1-8.1)
== END | disposition home or self-care (01) ==
LOC: COPL 11:02 → SCTO 11:02
PROVIDERS: PCP Internal Medicine; Referring Provider Nurse Practitioner Family; Visit Provider Nurse Practitioner Family
DX: D50.9 Iron deficiency anemia, unspecified (principal)
CPT/HCPCS: 36415; 80053; 82232; 82784; 83521; 84155; 84165; 85025; 86334